=== PATIENT | female | born 1970 | race Caucasian/White ===

== ENCOUNTER 2016-10-07 18:01 | Emergency (ER) | payer BC ==
--- NOTE | 2016-10-07 18:24 | ERPHSYRPT ---
- History of Present Illness Source: patient Exam Limitations: no limitations Cough Quality/Degree: productive cough (greenish chunks of thick sputum.) Possible Cause: occasional episodes Modifying Factors: Improves With: nothing Associated Symptoms: chest pain/soreness, cough, muscle aches, sinus infection, sore throat International travel in last 2 weeks: No Hx Tetanus, Diphtheria Vaccination/Date Given: Yes (UNKNOWN) Hx Influenza Vaccination/Date Given: No Hx Pneumococcal Vaccination/Date Given: No <JESUSITA JAMES - Last Filed: 10/07/16 19:02> <MIRELLA LOYD - Last Filed: 10/07/16 21:21> - History of Present Illness Time Seen by Provider: 10/07/16 18:15 Physician History: Pt. C/O cough with burning feeling in chest when she coughs. She also C/O aching all over, even her feet. She also states that she had URTI 2 weeks ago, for which she took round of amoxicillin with improvement. She is followed by Dr. Rivera for thyroid issues and relates the breakout perioral to that. (JESUSITA JAMES) Allergies/Adverse Reactions: Iodinated Contrast Media - Oral and [Iodinated Contrast Media - IV Dye] Adverse Reaction (Intermediate, Verified 10/07/16 18:23) Itching Home Medications: Folic Acid/Multivit-Min/Lutein [Multi-Vitamin Gummies] 1 each PO DAILY 10/07/16 [History] Levothyroxine Sodium 0 mcg PO DAILY 10/07/16 [History] - Review of Systems Eyes: No Symptoms Ears, Nose, & Throat: Throat Pain Respiratory: Cough Cardiac: Chest Pain Abdominal/Gastrointestinal: Vomiting Musculoskeletal: Arthralgias Skin: No Symptoms Neurological: No Symptoms Psychological: No Symptoms Hematologic/Lymphatic: No Symptoms Immunological/Allergic: No Symptoms <JESUSITA JAMES - Last Filed: 10/07/16 19:02> - Past Medical History Pertinent Past Medical History: Yes Neurological History: No Pertinent History ENT History: No Pertinent History Cardiac History: No Pertinent History Respiratory History: No Pertinent History Endocrine Medical History: No Pertinent History Musculoskeletal History: No Pertinent History GI Medical History: No Pertinent History History: No Pertinent History Psycho-Social History: No Pertinent History Female Reproductive Disorders: Menstrual Problems - Past Surgical History Past Surgical History: No Neuro Surgical History: No Pertinent History Cardiac: No Pertinent History Respiratory: No Pertinent History Gastrointestinal: No Pertinent History Genitourinary: No Pertinent History Musculoskeletal: No Pertinent History Female Surgical History: Other Other Surgical History: D&C August 2013 - Social History Smoking Status: Never smoker Exposure to second hand smoke: No Drug Use: none Patient Lives Alone: No - Female History Hx Now: Yes <JESUSITA JAMES - Last Filed: 10/07/16 19:02> - Physical Exam General Appearance: mild distress Eye Exam: PERRL/EOMI, eyes nml inspection Ears, Nose, Throat Exam: normal ENT inspection, TMs normal Neck Exam: normal inspection, non-tender, supple, full range of motion Respiratory Exam: normal breath sounds, lungs clear Cardiovascular Exam: regular rate/rhythm, normal heart sounds, normal peripheral pulses Gastrointestinal/Abdomen Exam: soft, normal bowel sounds Extremity Exam: normal inspection, normal range of motion, pelvis stable Neurologic Exam: alert, oriented x 3, cooperative, normal mood/affect Skin Exam: normal color, warm, dry, rash (macular perioral with dry skin. No erythema or pustular drainage.) SpO2 Interpretation: normal SpO2: 98 Oxygen Delivery: Room Air <JESUSITA JAMES - Last Filed: 10/07/16 19:02> - Course Nursing assessment & vital signs reviewed: Yes EKG Interpreted by Me: RATE (72 bpm), Sinus Rhythm, NORMAL AXIS, NORMAL INTERVALS, NORMAL QRS, Other (EKG: Normal sinus rhythm, 72 bpm, normal axis, no acute ST or T wave changes, essentially normal EKG, compared to March 30, 2015) - Radiology Exams Chest X-ray Interpretation: Interpreted by me, Negative, No Pneumonia, No Pneumothorax <MIRELLA LOYD - Last Filed: 10/07/16 21:21> Ordered Tests: Active Orders 24 hr Category Date Time Status EKG-ER Only STAT Care 10/07/16 20:38 Active CHEST 1 VIEW (PORTABLE) Stat Exams 10/07/16 18:28 Taken CBC W DIFF Stat Lab 10/07/16 19:10 Completed CMP Stat Lab 10/07/16 19:10 Completed HCG,QUALITATIVE URINE Stat Lab 10/07/16 20:25 Completed INFLUENZA A+B Stat Lab 10/07/16 18:40 Completed Manual Differential NC Stat Lab 10/07/16 19:10 Completed TSH [TSH, 3RD Generation] Stat Lab 10/07/16 20:30 Completed UA W/RFX UR CULTURE Stat Lab 10/07/16 20:25 Completed Medication Summary Generic Name Dose Route Start Last Admin Trade Name Vitor PRN Reason Stop Dose Admin Sodium Chloride 1,000 mls @ 999 mls/hr 10/07/16 21:16 Sodium Chloride 0.9% 1000 Ml IV 10/07/16 22:16 .Q1H1M STA Lab/Rad Data: Laboratory Result Diagrams 10/07/16 19:10 10/07/16 19:10 Laboratory Results 10/07/16 10/07/16 10/07/16 Range/Units 20:30 20:25 20:25 WBC (4.0-10.5) K/mm3 RBC (4.1-5.4) M/mm3 Hgb (12.0-16.0) gm/dl Hct (35-47) % MCV (78-100) fl MCH (26-32) pg MCHC (32-36) g/dl RDW (11.5-14.0) % Plt Count (150-450) K/mm3 MPV (6-9.5) fl Sodium (136-145) mEq/L Potassium (3.5-5.1) mEq/L Chloride (98-107) mEq/L Carbon Dioxide (21-32) mEq/L Anion Gap (5-15) MEQ/L BUN (9-20) mg/dL Creatinine (0.55-1.30) mg/dl Estimated GFR ML/MIN Glucose (70-110) MG/DL Calcium (8.5-10.1) mg/dL Total Bilirubin (0.2-1.0) mg/dL AST (15-37) U/L ALT (12-78) U/L Alkaline Phosphatase (46-116) U/L Serum Total Protein (6.4-8.2) gm/dL Albumin (3.4-5.0) g/dL TSH 3rd Generation 1.120 (0.358-3.740) mIU/L Ur Collection Type CLEAN CATCH Urine Color YELLOW (YELLOW) Urine Appearance CLEAR (CLEAR) Urine pH 5.5 (5-6) Ur Specific [place] >=1.030 (1.005-1.025) Urine Protein NEGATIVE (Negative) Urine Glucose (UA) NEGATIVE (NEGATIVE) mg/dL Urine Ketones MODERATE-40 (NEGATIVE) Urine Nitrite NEGATIVE (NEGATIVE) Urine Bilirubin SMALL (NEGATIVE) Urine Urobilinogen 0.2 (0-1) mg/dL Urine WBC (Auto) NEGATIVE (NEGATIVE) Urine RBC (Auto) NEGATIVE (0-5) Jignesh/ul Urine HCG, Qual NEGATIVE (Negative) Influenza Type A Ag (NEGATIVE) Influenza Type B Ag (NEGATIVE) Specimen Received 10/07/16192410/07/16 10/07/16 10/07/16 Range/Units 19:10 19:10 18:40 WBC 5.1 (4.0-10.5) K/mm3 RBC 4.45 (4.1-5.4) M/mm3 Hgb 13.6 (12.0-16.0) gm/dl Hct 41.6 (35-47) % MCV 93.5 (78-100) fl MCH 30.6 (26-32) pg MCHC 32.7 (32-36) g/dl RDW 13.2 (11.5-14.0) % Plt Count 125 L (150-450) K/mm3 MPV 9.7 H (6-9.5) fl Sodium 139 (136-145) mEq/L Potassium 3.6 (3.5-5.1) mEq/L Chloride 106 (98-107) mEq/L Carbon Dioxide 25.0 (21-32) mEq/L Anion Gap 11.4 (5-15) MEQ/L BUN 13 (9-20) mg/dL Creatinine 0.61 (0.55-1.30) mg/dl Estimated GFR > 60 ML/MIN Glucose 84 (70-110) MG/DL Calcium 8.2 L (8.5-10.1) mg/dL Total Bilirubin 1.4 H (0.2-1.0) mg/dL AST 24 (15-37) U/L ALT 28 (12-78) U/L Alkaline Phosphatase 55 (46-116) U/L Serum Total Protein 7.2 (6.4-8.2) gm/dL Albumin 3.8 (3.4-5.0) g/dL TSH 3rd Generation (0.358-3.740) mIU/L Ur Collection Type Urine Color (YELLOW) Urine Appearance (CLEAR) Urine pH (5-6) Ur Specific [place] (1.005-1.025) Urine Protein (Negative) Urine Glucose (UA) (NEGATIVE) mg/dL Urine Ketones (NEGATIVE) Urine Nitrite (NEGATIVE) Urine Bilirubin (NEGATIVE) Urine Urobilinogen (0-1) mg/dL Urine WBC (Auto) (NEGATIVE) Urine RBC (Auto) (0-5) Jignesh/ul Urine HCG, Qual (Negative) Influenza Type A Ag NEGATIVE (NEGATIVE) Influenza Type B Ag NEGATIVE (NEGATIVE) Specimen Received <JESUSITA JAEMS - Last Filed: 10/07/16 19:02> - Progress Progress: improved Air Movement: fair <MIRELLA LOYD - Last Filed: 10/07/16 21:21> - Progress Progress Note: 10/07/16 20:39 This is a 45-year-old white female initially seen by Dr. James with complaint of vomiting diarrhea since today cough and cold with pain with the coughing and deep breathing for the past few days patient apparently has been undergoing a workup with Dr. Rivera for her thyroid she states she's been having burning on the bottoms of her feet. Patient has no fevers she states she aches all over she has had a recent upper respiratory infection. Past medical history essentially negative however she has been having a workup for her thyroid with her family doctor. Past surgical history includes a D&C. 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 Head is atraumatic normocephalic. Eyes PERRLA EOMI fundi are unremarkable. Ears TMs are intact bilaterally. Heart regular rate and rhythm without murmur. Abdomen soft nontender nondistended positive bowel sounds. Extremities full range of motion pulse symmetrical 2 over 4. Neuro cranial nerves II through XII are intact DTRs symmetrical 2 over 4 [place] Coma Scale 15 sensation intact to all extremities speech is normal. Patient's CBC is normal chemistry is normal influenza is negative urine and urine tests are pending. Will review patient's chest x-ray. Will go ahead and order an EKG patient has pain with breathing and coughing in her chest upper chest. 10/07/16 21:17 Patient's labs including CBC CMP and TSH are normal. Patient does have a 40 ketones in her urine glucose is 84. Will give patient a liter of normal saline EKG is a no acute changes. . Chest x-ray no acute changes no infiltrates. Will plan to hydrate the patient with 1 L of normal saline. Patient with multiple complaints which have been going on for several months. Will recommend patient follow-up with her family doctor Diagnosis mild dehydration. , Vomiting, . (MIRELLA LOYD) <JESUSITA JAMES HERNANDEZ - Last Filed: 10/07/16 19:02> - Departure Time of Disposition: 21:18 Departure Disposition: Home Critical Care Time: No <MIRELLA LOYD - Last Filed: 10/07/16 21:21> - Departure Clinical Impression: Dehydration Vomiting Qualifiers: Vomiting type: unspecified Vomiting Intractability: non-intractable Nausea presence: with nausea Qualified Code(s): R11.2 - Nausea with vomiting, unspecified Condition: Fair Referrals: KAMAR RIVERA [Primary Care Provider] - Additional Instructions: Return home. Plenty of fluids clear fluids only 24-48 hours if nausea vomiting. Zofran 4 mg orally every 4-6 hours as needed for nausea vomiting. Follow-up with Dr. Rivera. Return for acute distress or for severe symptoms. Prescriptions: Ondansetron [Zofran Odt] 4 mg PO Q4-6HPRN PRN #10 tab.rapdis PRN Reason: nausea and vomiting
[2016-10-07 19:18] LABS: Mean Cell Volume 93.5 fl (78-100); Mean Corpuscular Hemoglobin 30.6 pg (26-32); Mean Platelet Volume 9.7 fl (6-9.5); Platelet Count 125 K/mm3 (150-450); Red Blood Count 4.45 M/mm3 (4.1-5.4); Red Cell Distribution Width 13.2 % (11.5-14.0); White Blood Count 5.1 K/mm3 (4.0-10.5)
[2016-10-07 19:48] LABS: ALBUMIN 3.8 g/dL (3.4-5.0); ALKALINE PHOSPHATASE 55 U/L (46-116); ANION GAP 11.4 MEQ/L (5-15); BILIRUBIN,TOTAL 1.4 mg/dL (0.2-1.0); BLOOD UREA NITROGEN 13 mg/dL (9-20); CHLORIDE 106 mEq/L (98-107); Glucose 84 MG/DL (70-110); Potassium 3.6 mEq/L (3.5-5.1); SGOT/AST 24 U/L (15-37); SGPT/ALT 28 U/L (12-78); SODIUM 139 mEq/L (136-145); Total Protein 7.2 gm/dL (6.4-8.2)
[2016-10-07 20:43] LABS: Collection Type CLEAN CATCH; Ph 5.5 (5-6)
[2016-10-07 20:44] LABS: ADD URINE CULTURE? NO (NO); COMPLETE URINE MICROSCOPIC? NO
[2016-10-07] MEDS ORDERED: Sodium Chloride 0.9% 1000 ML 1,000 ML IV STA (21:16)
[2016-10-07] MEDS ORDERED: Sodium Chloride 0.9% 1000 ML 1,000 ML ONE (21:22)
[2016-10-07 22:21] LABS: Eosinophil 1 % (0.00-3.0); Platelet Estimate NORMAL (NORMAL); Total Cells Counted 100
[2016-10-07 22:29] VITALS: BP 107/56; PULSE 88; O2SAT 97
--- NOTE | 2016-10-08 08:42 | XRAY ---
Indication: Cough, nausea, and vomiting. Comparison: September 21, 2016 Portable chest remains unchanged again hyperinflated and clear with a few calcified granulomas. Heart is not enlarged. No new/acute findings.
== END 2016-10-07 22:28 | disposition home or self-care (01) ==
LOC: ED 18:01
DX: R11.2 Nausea with vomiting, unspecified (principal); E86.0 Dehydration; Z79.899 Other long term (current) drug therapy
CPT/HCPCS: 36000; 36415; 71010; 80053; 81000; 84443; 84703; 85025; 87400; 93005; 99283

== ENCOUNTER 2018-09-06 20:05 | Emergency (ER) | payer BC ==
--- NOTE | 2018-09-06 20:52 | ERPHSYRPT ---
- History of Present Illness Time Seen by Provider: 09/06/18 20:35 Source: patient Exam Limitations: clinical condition Patient Subjective Stated Complaint: pt states she has overall pain that rates 7. c/o abdominal pain off and on that rates 5 sharp and sporadic. c/o burning in lungs. pt states she has thyroid troubles and has been feeling badly for 2 weeks and off and on before that. Triage Nursing Assessment: bs q4 quads. pt states she has generalized pain in all for abdominal quadrants. pt states she has not been able to get thyroid levels checked lately. bilateral lower abdominal tenderness. no problems with eating, stooling, or voiding Physician History: PATIENT COMPLAINS OF GENERALIZED PAIN FOR 2 WEEKS, BURNING DISCOMFORT IN HER CHEST X 5 DAYS, DENIES DYSPNEA, PAIN UPON INSPIRATION, COUGH, FEVER, PALPITATIONS OR DIAPHORESIS. ALSO COMPLAINS OF ABDOMINAL PAIN X 2 WEEKS. DENIES EMESIS, DIARRHEA OR URINARY SYMPTOMS Timing/Duration: week(s) Severity: moderate Modifying Factors: Improves With: movement (generalized aches) Allergies/Adverse Reactions: Iodinated Contrast- Oral and IV Dye [Iodinated Contrast Media - IV Dye] Adverse Reaction (Intermediate, Verified 10/07/16 18:23) Itching Home Medications: Folic Acid/Multivit-Min/Lutein [Multi-Vitamin Gummies] 1 each PO DAILY 10/07/16 [History] Levothyroxine Sodium 0 mcg PO DAILY 10/07/16 [History] Hx Tetanus, Diphtheria Vaccination/Date Given: No Hx Influenza Vaccination/Date Given: No Hx Pneumococcal Vaccination/Date Given: No Immunizations Up to Date: Yes - Review of Systems Constitutional: No Fever, No Chills Eyes: No Symptoms Ears, Nose, & Throat: No Symptoms Respiratory: No Symptoms, No Cough, No Dyspnea Cardiac: Chest Pain, No Edema, No Syncope Abdominal/Gastrointestinal: No Abdominal Pain, No Nausea, No Vomiting, No Diarrhea Genitourinary Symptoms: No Symptoms, No Dysuria Musculoskeletal: No Symptoms, No Back Pain, No Neck Pain Skin: No Symptoms, No Rash Neurological: No Dizziness, No Focal Weakness, No Sensory Changes Psychological: No Symptoms Endocrine: No Symptoms All Other Systems: Reviewed and Negative - Past Medical History Pertinent Past Medical History: Yes Neurological History: No Pertinent History ENT History: No Pertinent History Cardiac History: No Pertinent History Respiratory History: No Pertinent History Endocrine Medical History: No Pertinent History Musculoskeletal History: No Pertinent History GI Medical History: No Pertinent History History: No Pertinent History Psycho-Social History: No Pertinent History Female Reproductive Disorders: Menstrual Problems Other Medical History: thyroid problems - Past Surgical History Past Surgical History: No Neuro Surgical History: No Pertinent History Cardiac: No Pertinent History Respiratory: No Pertinent History Gastrointestinal: No Pertinent History Genitourinary: No Pertinent History Musculoskeletal: No Pertinent History Female Surgical History: Other Other Surgical History: D&C August 2013 - Social History Smoking Status: Never smoker Exposure to second hand smoke: No Drug Use: none Patient Lives Alone: No - Female History Hx Last Menstrual Period: 6 wks Hx Now: No - Nursing Vital Signs Nursing Vital Signs: Initial Vital Signs Temperature 98.1 F 09/06/18 20:15 Pulse Rate 80 09/06/18 20:15 Respiratory Rate 18 09/06/18 20:15 Blood Pressure 129/68 09/06/18 20:15 O2 Sat by Pulse Oximetry 97 09/06/18 20:15 Pain Scale Pain Intensity [Lower Abdomen] 7 Pain Intensity 5 - Physical Exam General Appearance: no apparent distress, alert Eye Exam: PERRL/EOMI, eyes nml inspection Ears, Nose, Throat Exam: normal ENT inspection, TMs normal, pharynx normal, moist mucous membranes Neck Exam: normal inspection, non-tender, supple, full range of motion Respiratory Exam: normal breath sounds, lungs clear, other (PARASTERNAL TENDERNESS), No respiratory distress Cardiovascular Exam: regular rate/rhythm, normal heart sounds, normal peripheral pulses Gastrointestinal/Abdomen Exam: soft, normal bowel sounds, No tenderness, No mass Back Exam: normal inspection, normal range of motion, No CVA tenderness, No vertebral tenderness Extremity Exam: normal inspection, normal range of motion, pelvis stable Neurologic Exam: alert, oriented x 3, cooperative, normal mood/affect, nml cerebellar function, nml station & gait, sensation nml, No motor deficits Skin Exam: normal color, warm, dry, No rash Lymphatic Exam: No adenopathy SpO2 Interpretation: normal SpO2: 97 Oxygen Delivery: Room Air - Course EKG Interpreted by Me: RATE, Sinus Rhythm, NORMAL AXIS - Radiology Exams Abdomen X-ray Interpretation: Interpreted by me, Negative (FECAL RETENTION, NO FREE AIR , NO BOWEL OBSTRUCTION, NEGATIVE CHEST) Ordered Tests: Active Orders 24 hr Category Date Time Status Clean Catch Urine Specimen STAT Care 09/06/18 20:37 Active EKG-ER Only STAT Care 09/06/18 20:37 Active IV Insertion STAT Care 09/06/18 20:37 Active OBSTR/ACUTE ABDOMEN SERIES Stat Exams 09/06/18 21:19 Taken AMYLASE Stat Lab 09/06/18 20:56 Completed CBC W DIFF Stat Lab 09/06/18 20:56 Completed CMP Stat Lab 09/06/18 20:56 Completed CULTURE,URINE Stat Lab 09/06/18 21:25 Received D-DIMER QUANTITATION Stat Lab 09/06/18 20:56 Completed HCG,QUALITATIVE URINE Stat Lab 09/06/18 21:25 Completed LIPASE Stat Lab 09/06/18 20:56 Completed MAGNESIUM Stat Lab 09/06/18 21:21 Completed TROPONIN Q3H Lab 09/06/18 20:56 Completed TROPONIN Q3H Lab 09/07/18 00:00 Ordered TROPONIN Q3H Lab 09/07/18 03:00 Ordered TROPONIN Q3H Lab 09/07/18 06:00 Ordered TROPONIN Q3H Lab 09/07/18 09:00 Ordered TSH, 3RD Generation Stat Lab 09/06/18 20:56 Completed UA W/RFX UR CULTURE Stat Lab 09/06/18 21:25 Completed Medication Summary Generic Name Dose Route Start Last Admin Trade Name Freq PRN Reason Stop Dose Admin Sodium Chloride 1,000 mls @ 200 mls/hr 09/06/18 21:00 09/06/18 21:12 Sodium Chloride 0.9% 1000 Ml IV 10/06/18 20:59 200 mls/hr .Q5H SATNAM Administration Discontinued Medications Generic Name Dose Route Start Last Admin Trade Name Freq PRN Reason Stop Dose Admin Aspirin 324 mg 09/06/18 20:54 09/06/18 21:19 Baby Aspirin 81 Mg Chew PO 09/06/18 20:55 324 mg STAT ONE Administration Aspirin Confirm 09/06/18 21:18 Baby Aspirin 81 Mg Chew Administered 09/06/18 21:19 Dose 324 mg .ROUTE .STK-MED ONE Erythromycin 3.5 gm 09/06/18 21:19 09/06/18 21:34 Erythromycin 3.5 Gm Ophth. OP 09/06/18 21:20 3.5 gm STAT ONE Administration Erythromycin Confirm 09/06/18 21:29 Erythromycin 1 Gm Administered 09/06/18 21:30 Dose 1 gm .ROUTE .STK-MED ONE Eye Irrigation Solution Confirm 09/06/18 20:56 Eye-Stream Solution Administered 09/06/18 20:57 Dose 30 ml .ROUTE .STK-MED ONE Fluorescein Sodium Confirm 09/06/18 20:56 [id number]/Ful-Per Administered 09/06/18 20:57 Dose 1 mg OP .STK-MED ONE Ceftriaxone Sodium/Dextrose 1 g in 50 mls @ 100 mls/hr 09/06/18 22:34 22:40 Rocephin 1 Gm-D5w 50 Ml Bag IV 09/06/18 23:03 100 ml/hr STAT STA 100 mls/hr Administration Ceftriaxone Sodium/Dextrose Confirm 09/06/18 22:37 Rocephin 1 Gm-D5w 50 Ml Bag Administered 09/06/18 22:38 Dose 1 g in 50 mls @ ud IV .STK-MED ONE Ketorolac Tromethamine 30 mg 09/06/18 21:27 09/06/18 21:33 Toradol 30 Mg Injection IV 09/06/18 21:28 30 mg STAT ONE Administration Ketorolac Tromethamine Confirm 09/06/18 21:29 Toradol 30 Mg Injection Administered 09/06/18 21:30 Dose 30 mg .ROUTE .STK-MED ONE Nitroglycerin 0.4 mg 09/06/18 20:54 09/06/18 21:20 Nitrostat 0.4 Mg (Ed) SL 09/06/18 20:55 0.4 mg STAT ONE Administration Nitroglycerin Confirm 09/06/18 21:18 Nitrostat 0.4 Mg (Ed) Administered 09/06/18 21:19 Dose 0.4 mg SL .STK-MED ONE Ondansetron HCl 4 mg 09/06/18 21:27 09/06/18 21:33 Zofran 4 Mg/2 Ml Vial IV 09/06/18 21:28 4 mg STAT ONE Administration Ondansetron HCl Confirm 09/06/18 21:29 Zofran 4 Mg/2 Ml Vial Administered 09/06/18 21:30 Dose 4 mg .ROUTE .STK-MED ONE Tetracaine HCl Confirm 09/06/18 20:56 Tetracaine 0.5% Steri-Unit Nubia Administered 09/06/18 20:57 Dose 4 ml OP .STK-MED ONE Lab/Rad Data: Laboratory Result Diagrams 09/06/18 20:56 09/06/18 20:56 Laboratory Results 09/06/18 09/06/18 09/06/18 Range/Units 21:25 21:25 21:21 WBC (4.0-10.5) K/mm3 RBC (4.1-5.4) M/mm3 Hgb (12.0-16.0) gm/dl Hct (35-47) % MCV (78-100) fl MCH (26-32) pg MCHC (32-36) g/dl RDW (11.5-14.0) % Plt Count (150-450) K/mm3 MPV (6-9.5) fl Gran % (36.0-66.0) % Eos # (Auto) (0-0.5) Absolute Lymphs (auto) (1.0-4.6) Absolute Monos (auto) (0.0-1.3) Lymphocytes % (24.0-44.0) % Monocytes % (0.0-12.0) % Eosinophils % (0.00-5.0) % Basophils % (0.0-0.4) % Absolute Granulocytes (1.4-6.9) Basophils # (0-0.4) D-Dimer (215-500) ng/mL Sodium (137-145) mmol/L Potassium (3.5-5.1) mmol/L Chloride (98-107) mmol/L Carbon Dioxide (22-30) mmol/L Anion Gap (5-15) MEQ/L BUN (7-17) mg/dL Creatinine (0.52-1.04) mg/dL Estimated GFR ML/MIN Glucose (74-106) mg/dL Calcium (8.4-10.2) mg/dL Magnesium 1.9 (1.6-2.3) mg/dL Total Bilirubin (0.2-1.3) mg/dL AST (14-36) U/L ALT (0-35) U/L Alkaline Phosphatase (38-126) U/L Troponin I (0.000-0.034) ng/mL Serum Total Protein (6.3-8.2) g/dL Albumin (3.5-5.0) g/dL Amylase (30-110) U/L Lipase (23-300) U/L TSH 3rd Generation (0.47-4.68) mIU/L Urine Color YELLOW (YELLOW) Urine Appearance CLOUDY (CLEAR) Urine pH 5.0 (5-6) Ur Specific Ilion 1.024 (1.005-1.025) Urine Protein NEGATIVE (Negative) Urine Ketones NEGATIVE (NEGATIVE) Urine Blood LARGE (0-5) Jignesh/ul Urine Nitrite NEGATIVE (NEGATIVE) Urine Bilirubin NEGATIVE (NEGATIVE) Urine Urobilinogen 2 (0-1) mg/dL Ur Leukocyte Esterase LARGE (NEGATIVE) Urine WBC (Auto) 51-100 (0-5) /HPF Urine RBC (Auto) 11-15 (0-2) /HPF U Epithel Cells (Auto) FEW (FEW) /HPF Urine Bacteria (Auto) MODERATE (NEGATIVE) /HPF Urine Mucus (Auto) SLIGHT (NEGATIVE) /HPF Urine Culture Reflexed YES (NO) Urine Glucose NEGATIVE (NEGATIVE) mg/dL Urine HCG, Qual NEGATIVE (Negative) 09/06/18 09/06/18 09/06/18 Range/Units 20:56 20:56 20:56 WBC (4.0-10.5) K/mm3 RBC (4.1-5.4) M/mm3 Hgb (12.0-16.0) gm/dl Hct (35-47) % MCV (78-100) fl MCH (26-32) pg MCHC (32-36) g/dl RDW (11.5-14.0) % Plt Count (150-450) K/mm3 MPV (6-9.5) fl Gran % (36.0-66.0) % Eos # (Auto) (0-0.5) Absolute Lymphs (auto) (1.0-4.6) Absolute Monos (auto) (0.0-1.3) Lymphocytes % (24.0-44.0) % Monocytes % (0.0-12.0) % Eosinophils % (0.00-5.0) % Basophils % (0.0-0.4) % Absolute Granulocytes (1.4-6.9) Basophils # (0-0.4) D-Dimer 497 (215-500) ng/mL Sodium 139 (137-145) mmol/L Potassium 3.8 (3.5-5.1) mmol/L Chloride 105 (98-107) mmol/L Carbon Dioxide 26 (22-30) mmol/L Anion Gap 11.7 (5-15) MEQ/L BUN 17 (7-17) mg/dL Creatinine 0.64 (0.52-1.04) mg/dL Estimated GFR > 60.0 ML/MIN Glucose 83 (74-106) mg/dL Calcium 9.2 (8.4-10.2) mg/dL Magnesium (1.6-2.3) mg/dL Total Bilirubin 0.70 (0.2-1.3) mg/dL AST 27 (14-36) U/L ALT 24 (0-35) U/L Alkaline Phosphatase 51 (38-126) U/L Troponin I < 0.012 (0.000-0.034) ng/mL Serum Total Protein 7.2 (6.3-8.2) g/dL Albumin 4.3 (3.5-5.0) g/dL Amylase 65 (30-110) U/L Lipase 75 (23-300) U/L TSH 3rd Generation 1.670 (0.47-4.68) mIU/L Urine Color (YELLOW) Urine Appearance (CLEAR) Urine pH (5-6) Ur Specific Ilion (1.005-1.025) Urine Protein (Negative) Urine Ketones (NEGATIVE) Urine Blood (0-5) Jignesh/ul Urine Nitrite (NEGATIVE) Urine Bilirubin (NEGATIVE) Urine Urobilinogen (0-1) mg/dL Ur Leukocyte Esterase (NEGATIVE) Urine WBC (Auto) (0-5) /HPF Urine RBC (Auto) (0-2) /HPF U Epithel Cells (Auto) (FEW) /HPF Urine Bacteria (Auto) (NEGATIVE) /HPF Urine Mucus (Auto) (NEGATIVE) /HPF Urine Culture Reflexed (NO) Urine Glucose (NEGATIVE) mg/dL Urine HCG, Qual (Negative) 09/06/18 Range/Units 20:56 WBC 5.4 (4.0-10.5) K/mm3 RBC 3.79 L (4.1-5.4) M/mm3 Hgb 13.0 (12.0-16.0) gm/dl Hct 37.5 (35-47) % MCV 98.9 (78-100) fl MCH 34.3 H (26-32) pg MCHC 34.7 (32-36) g/dl RDW 13.2 (11.5-14.0) % Plt Count 175 (150-450) K/mm3 MPV 9.9 H (6-9.5) fl Gran % 62.3 (36.0-66.0) % Eos # (Auto) 0.12 (0-0.5) Absolute Lymphs (auto) 1.31 (1.0-4.6) Absolute Monos (auto) 0.59 (0.0-1.3) Lymphocytes % 24.2 (24.0-44.0) % Monocytes % 10.9 (0.0-12.0) % Eosinophils % 2.2 (0.00-5.0) % Basophils % 0.4 (0.0-0.4) % Absolute Granulocytes 3.38 (1.4-6.9) Basophils # 0.02 (0-0.4) D-Dimer (215-500) ng/mL Sodium (137-145) mmol/L Potassium (3.5-5.1) mmol/L Chloride (98-107) mmol/L Carbon Dioxide (22-30) mmol/L Anion Gap (5-15) MEQ/L BUN (7-17) mg/dL Creatinine (0.52-1.04) mg/dL Estimated GFR ML/MIN Glucose (74-106) mg/dL Calcium (8.4-10.2) mg/dL Magnesium (1.6-2.3) mg/dL Total Bilirubin (0.2-1.3) mg/dL AST (14-36) U/L ALT (0-35) U/L Alkaline Phosphatase (38-126) U/L Troponin I (0.000-0.034) ng/mL Serum Total Protein (6.3-8.2) g/dL Albumin (3.5-5.0) g/dL Amylase (30-110) U/L Lipase (23-300) U/L TSH 3rd Generation (0.47-4.68) mIU/L Urine Color (YELLOW) Urine Appearance (CLEAR) Urine pH (5-6) Ur Specific [place] (1.005-1.025) Urine Protein (Negative) Urine Ketones (NEGATIVE) Urine Blood (0-5) Jignesh/ul Urine Nitrite (NEGATIVE) Urine Bilirubin (NEGATIVE) Urine Urobilinogen (0-1) mg/dL Ur Leukocyte Esterase (NEGATIVE) Urine WBC (Auto) (0-5) /HPF Urine RBC (Auto) (0-2) /HPF U Epithel Cells (Auto) (FEW) /HPF Urine Bacteria (Auto) (NEGATIVE) /HPF Urine Mucus (Auto) (NEGATIVE) /HPF Urine Culture Reflexed (NO) Urine Glucose (NEGATIVE) mg/dL Urine HCG, Qual (Negative) - Progress Progress: improved Progress Note: 09/06/18 23:30 IV ROCEPHIN 1GM IVPB, ALL LABS REVIEWED AND ARE NORMAL EXCEPT FOR U/A WBC 51-100 Counseled pt/family regarding: lab results, diagnosis, need for follow-up, rad results - Departure Time of Disposition: 23:38 Departure Disposition: Home Clinical Impression: URINARY TRACT INFECTION Condition: Stable Critical Care Time: No Referrals: KAMAR BURROUGHS [Primary Care Provider] - Additional Instructions: BEGIN ANTIBIOTIC BACTRIM DS TWICE DAILY FOR 10 DAYS. DRINK PLENTY OF FLUIDS. FOLLOWUP WITH YOUR PRIMARY CARE PROVIDER FOR EVALUATION AND TREATMENT. Prescriptions: Smz/Tmp Ds Tablet [Bactrim Ds Tablet] 1 tab PO Q12H #20 tablet
[2018-09-06] MEDS ORDERED: Nitrostat 0.4 MG (ED) SL ONE ×2 (20:54→21:18)
[2018-09-06] MEDS ORDERED: BABY ASPIRIN 81 MG CHEW PO ONE (20:54)
[2018-09-06] MEDS ORDERED: Fluor-I-Strip/Ful-Flo OP ONE (20:56)
[2018-09-06] MEDS ORDERED: TETRACAINE 0.5% STERI-UNIT SOL OP ONE (20:56)
[2018-09-06] MEDS ORDERED: Eye-Stream Solution ONE (20:56)
[2018-09-06] MEDS ORDERED: Sodium Chloride 0.9% 1000 ML 1,000 ML ONE (20:57)
[2018-09-06] MEDS ORDERED: Sodium Chloride 0.9% 1000 ML 1,000 ML IV SCH (21:00)
[2018-09-06 21:02] LABS: BASOPHIL % 0.4 % (0.0-0.4); Basophil (Absolute #) 0.02 (0-0.4); Eosinophil % 2.2 % (0.00-5.0); Eosinophil (Absolute #) 0.12 (0-0.5); Granulocyte Absolute (ANC) 3.38 (1.4-6.9); Granulocytes % 62.3 % (36.0-66.0); Hematocrit 37.5 % (35-47); Lymphocyte (Absolute #) 1.31 (1.0-4.6); Lymphocytes % 24.2 % (24.0-44.0); Mean Cell Volume 98.9 fl (78-100); Mean Corpuscular Hemoglobin 34.3 pg (26-32); Mean Corpuscular Hgb Concent. 34.7 g/dl (32-36); Mean Platelet Volume 9.9 fl (6-9.5); Monocyte (Absolute #) 0.59 (0.0-1.3); Monocytes % 10.9 % (0.0-12.0); Platelet Count 175 K/mm3 (150-450); Red Blood Count 3.79 M/mm3 (4.1-5.4); Red Cell Distribution Width 13.2 % (11.5-14.0); White Blood Count 5.4 K/mm3 (4.0-10.5)
[2018-09-06] MEDS ORDERED: BABY ASPIRIN 81 MG CHEW ONE (21:18)
[2018-09-06] MEDS ORDERED: Erythromycin 3.5 GM OPHTH. OP ONE (21:19)
[2018-09-06 21:24] VITALS: BP 108/70; PULSE 76
[2018-09-06] MEDS ORDERED: TORAdol 30 mg Injection IV ONE (21:27)
[2018-09-06] MEDS ORDERED: Zofran 4 MG/2 ML VIAL IV ONE (21:27)
[2018-09-06] MEDS ORDERED: Zofran 4 MG/2 ML VIAL ONE (21:29)
[2018-09-06] MEDS ORDERED: TORAdol 30 mg Injection ONE (21:29)
[2018-09-06] MEDS ORDERED: Erythromycin 1 GM ONE (21:29)
[2018-09-06 21:34] LABS: Appearance CLOUDY (CLEAR); Bilirubin NEGATIVE (NEGATIVE); Blood LARGE Ery/ul (0-5); Glucose NEGATIVE (NEGATIVE); Ketones NEGATIVE (NEGATIVE); Leukocyte Esterase LARGE (NEGATIVE); Nitrite NEGATIVE (NEGATIVE); Protein,Urine Dip NEGATIVE (Negative); Specific Gravity 1.024 (1.005-1.025); Urobilinogen 2 mg/dL (0-1)
[2018-09-06 21:44] LABS: ALBUMIN 4.3 g/dL (3.5-5.0); ALKALINE PHOSPHATASE 51 U/L (38-126); AMYLASE 65 U/L (30-110); ANION GAP 11.7 MEQ/L (5-15); BLOOD UREA NITROGEN 17 mg/dL (7-17); CHLORIDE 105 mmol/L (98-107); Calcium 9.2 mg/dL (8.4-10.2); Carbon Dioxide 26 mmol/L (22-30); Creatinine 1 0.64 mg/dL (0.52-1.04); Glucose 83 mg/dL (74-106); LIPASE 75 U/L (23-300); Potassium 3.8 mmol/L (3.5-5.1); SGOT/AST 27 U/L (14-36); SGPT/ALT 24 U/L (0-35); SODIUM 139 mmol/L (137-145); Total Protein 7.2 g/dL (6.3-8.2)
[2018-09-06] MEDS ORDERED: ROCEPHIN 1 Gm-D5w 50 ml Bag** 1 G/50 ML IVPB IV STA (22:34)
[2018-09-06] MEDS ORDERED: ROCEPHIN 1 Gm-D5w 50 ml Bag** 1 G/50 ML IVPB IV ONE (22:37)
[2018-09-06 23:27] VITALS: O2SAT 97
--- NOTE | 2018-09-07 10:49 | XRAY ---
Indication: Chest burning sensation. Abdomen tenderness. Comparison: Portable chest October 07, 2016. 2 views of the abdomen demonstrates moderate diffuse scattered colonic fecal debris. No focal bowel dilatation/obstruction. Solid organs unremarkable. Osseous structures intact with mild levoscoliosis. Single AP chest again demonstrates normal heart and lungs. Bony thorax intact with stable mild dextroscoliosis. Impression: 1. Fecal stasis without obstruction. 2. Stable normal one view chest. 3. Incidental double curvature scoliosis.
== END 2018-09-06 23:50 | disposition home or self-care (01) ==
LOC: ED 20:05
DX: N39.0 Urinary tract infection, site not specified (principal); Z79.899 Other long term (current) drug therapy
CPT/HCPCS: 36000; 36415; 74022; 80053; 81001; 82150; 83690; 83735; 84443; 84484; 84703; 85025; 85379; 87077; 87086; 87186; 93005; 96360; 96365; 96374; 96375; 99284; J0696; J1885; J2405; A9270-GY

== ENCOUNTER 2018-09-09 17:50 | Emergency (ER) | payer BC ==
--- NOTE | 2018-09-09 17:57 | ERPHSYRPT ---
- History of Present Illness Time Seen by Provider: 09/09/18 17:57 Historian: patient, family Exam Limitations: no limitations Physician History: 47 y/o white female presents with "not feeling well for months" and persistent cp since her visit 09/06/18. i reviewed pts visit . no acute process. since pt sx of cp present, pcp office told pt to come to ED for eval. pt thinks the bactrim ds is making her feel worse. denies soa. Timing/Duration: week(s) Activities at Onset: none Quality: tightness (in her chest) Chest Pain Radiation: no radiation Severity of Pain-Max: mild Severity of Pain-Current: mild Modifying Factors: Improves With: nothing Associated Symptoms: nausea Prior Chest Pain/Cardiac Workup: recently seen/treated Nitro Today/Relief: no nitro taken today Aspirin Treatment Today: no aspirin today Allergies/Adverse Reactions: Iodinated Contrast- Oral and IV Dye [Iodinated Contrast Media - IV Dye] Adverse Reaction (Intermediate, Verified 09/06/18 23:34) Itching Home Medications: Folic Acid/Multivit-Min/Lutein [Multi-Vitamin Gummies] 1 each PO DAILY 10/07/16 [History] Levothyroxine Sodium 0 mcg PO DAILY 10/07/16 [History] Hx Tetanus, Diphtheria Vaccination/Date Given: No Hx Influenza Vaccination/Date Given: No Hx Pneumococcal Vaccination/Date Given: No - Review of Systems Constitutional: No Symptoms Eyes: No Symptoms Ears, Nose, & Throat: No Symptoms Respiratory: No Symptoms Cardiac: Chest Pain Abdominal/Gastrointestinal: No Symptoms Genitourinary Symptoms: No Symptoms Musculoskeletal: No Symptoms Skin: No Symptoms Neurological: No Symptoms Psychological: No Symptoms Endocrine: No Symptoms Hematologic/Lymphatic: No Symptoms Immunological/Allergic: No Symptoms All Other Systems: Reviewed and Negative - Past Medical History Pertinent Past Medical History: Yes Neurological History: No Pertinent History ENT History: No Pertinent History Cardiac History: No Pertinent History Respiratory History: No Pertinent History Endocrine Medical History: No Pertinent History Musculoskeletal History: No Pertinent History GI Medical History: No Pertinent History History: No Pertinent History Psycho-Social History: No Pertinent History Female Reproductive Disorders: Menstrual Problems Other Medical History: thyroid problems - Past Surgical History Past Surgical History: No Neuro Surgical History: No Pertinent History Cardiac: No Pertinent History Respiratory: No Pertinent History Gastrointestinal: No Pertinent History Genitourinary: No Pertinent History Musculoskeletal: No Pertinent History Female Surgical History: Other Other Surgical History: D&C August 2013 - Social History Smoking Status: Never smoker Exposure to second hand smoke: No Drug Use: none Patient Lives Alone: No - Nursing Vital Signs Nursing Vital Signs: Initial Vital Signs Pulse Rate 68 09/09/18 18:13 Pain Scale Pain Intensity 4 - Physical Exam General Appearance: no apparent distress, alert, anxiety Eye Exam: PERRL/EOMI Ears, Nose, Throat Exam: normal ENT inspection, moist mucous membranes Neck Exam: normal inspection, non-tender, supple, full range of motion Respiratory Exam: normal breath sounds, lungs clear, airway intact, No chest tenderness, No respiratory distress, No accessory muscle use, No rhonchi, No wheezing, No stridor Cardiovascular Exam: regular rate/rhythm, normal heart sounds, normal peripheral pulses Gastrointestinal/Abdomen Exam: soft, normal bowel sounds, No tenderness, No guarding, No rebound Pelvic Exam: not done Rectal Exam: not done Back Exam: normal inspection, normal range of motion, No CVA tenderness, No vertebral tenderness Extremity Exam: normal inspection, normal range of motion, pelvis stable Neurologic Exam: alert, oriented x 3, cooperative, warm in II-XII nml as tested Skin Exam: normal color, warm, dry Lymphatic Exam: No adenopathy SpO2 Interpretation: normal - Course Nursing assessment & vital signs reviewed: Yes EKG Interpreted by Me: RATE (76), Sinus Rhythm, NORMAL AXIS, NORMAL INTERVALS, NORMAL QRS (no change from ekg dated 09/06/18), Non-specific ST Changes Ordered Tests: Active Orders 24 hr Category Date Time Status EKG-ER Only STAT Care 09/09/18 18:04 Active D-DIMER QUANTITATION Stat Lab 09/09/18 18:25 Completed TROPONIN Q3H Lab 09/09/18 18:10 Completed TROPONIN Q3H Lab 09/09/18 21:15 Ordered Medication Summary Discontinued Medications Generic Name Dose Route Start Last Admin Trade Name Freq PRN Reason Stop Dose Admin Ceftriaxone Sodium/Dextrose 1 g in 50 mls @ 100 mls/hr 09/09/18 18:17 18:41 Rocephin 1 Gm-D5w 50 Ml Bag IV 09/09/18 18:46 100 ml/hr STAT STA 100 mls/hr Administration Ceftriaxone Sodium/Dextrose Confirm 09/09/18 18:39 Rocephin 1 Gm-D5w 50 Ml Bag Administered 09/09/18 18:40 Dose 1 g in 50 mls @ ud IV .STK-MED ONE Lab/Rad Data: Laboratory Results 09/09/18 09/09/18 Range/Units 18:25 18:10 D-Dimer 233 (215-500) ng/mL Troponin I < 0.012 (0.000-0.034) ng/mL - Progress Progress: improved Air Movement: good Antibiotics given: Yes Counseled pt/family regarding: lab results, diagnosis, need for follow-up - Departure Time of Disposition: 18:30 Departure Disposition: Home Clinical Impression: UTI (urinary tract infection), Chest pain Condition: Stable Critical Care Time: No Referrals: KAMAR GARSIA [Primary Care Provider] - Additional Instructions: drink plenty of fluids. stop bactrim ds. follow up with dr. garsia tomorrow for further management. Prescriptions: Ciprofloxacin [Cipro 500 MG] 500 mg PO BID #20 tablet
[2018-09-09] MEDS ORDERED: ROCEPHIN 1 Gm-D5w 50 ml Bag** 1 G/50 ML IVPB IV STA (18:17)
[2018-09-09 18:37] VITALS: O2SAT 100
[2018-09-09] MEDS ORDERED: ROCEPHIN 1 Gm-D5w 50 ml Bag** 1 G/50 ML IVPB IV ONE (18:39)
[2018-09-09 19:39] VITALS: BP 107/78; PULSE 91
== END 2018-09-09 19:43 ==
LOC: ED 17:50
DX: N39.0 Urinary tract infection, site not specified (principal); R07.9 Chest pain, unspecified; Z79.899 Other long term (current) drug therapy
CPT/HCPCS: 36000; 36415; 84484; 85379; 93005; 96365; 99284; J0696

== ENCOUNTER 2018-12-02 14:03 | Observation (INO) | payer BC, OTHER ==
[2018-12-02] MEDS ORDERED: Zofran 4 MG/2 ML VIAL IV ONE (14:23)
[2018-12-02] MEDS ORDERED: Sodium Chloride 0.9% 1000 ML 1,000 ML IV STA ×2 (14:23→15:55)
--- NOTE | 2018-12-02 14:29 | ERPHSYRPT ---
- History of Present Illness Time Seen by Provider: 12/02/18 14:25 Historian: patient Exam Limitations: no limitations Physician History: 48-year-old white female with history of menstrual problems and thyroid problems Patient arrives with complaint of multiple episodes of vomiting since yesterday she states she's had some tightness in her chest earlier no pain. She states her whole family has had flulike illness. She states she did not take her temperature but felt as if she was warm today. Past medical history includes menstrual problems, thyroid problems Past surgical history includes D&C Social history patient denies tobacco alcohol or illicit drug use Timing/Duration: yesterday Activities at Onset: none Quality: other (no abdominal pain chest is felt tight with breathing) Severity of Pain-Max: none Severity of Pain-Current: none Modifying Factors: Improves With: nothing Associated Symptoms: nausea, vomiting, other (chest tight with breathing), No back, No chest pain, No diaphoresis, No diarrhea, No fever/chills, No fatigue, No headache, No heartburn, No loss of appetite, No neck pain, No rash, No shortness of breath, No syncope Previous symptoms: no prior history Allergies/Adverse Reactions: Iodinated Contrast- Oral and IV Dye [Iodinated Contrast Media - IV Dye] Allergy (Mild, Verified 12/02/18 14:09) Itching sulfamethoxazole [From Bactrim] Adverse Reaction (Verified 12/02/18 14:10) abd pain trimethoprim [From Bactrim] Adverse Reaction (Verified 12/02/18 14:10) abd pain Home Medications: Levothyroxine Sodium 0 mcg PO DAILY 10/07/16 [History] Clonazepam 0.5 mg [Klonopin 0.5 MG] 0.5 mg PO DIRECTIONS UNKNOWN 12/02/18 [History] Hx Tetanus, Diphtheria Vaccination/Date Given: No Hx Influenza Vaccination/Date Given: No Hx Pneumococcal Vaccination/Date Given: No - Review of Systems Constitutional: No Fever, No Chills Eyes: No Symptoms Ears, Nose, & Throat: No Symptoms, No Hoarse Respiratory: Other (chest feels tight with breathing), No Cyanosis, No Dyspnea, No Dyspnea on Exertion (HSU), No Stridor Cardiac: No Chest Pain, No Edema, No Syncope Abdominal/Gastrointestinal: Nausea, Vomiting, No Abdominal Pain, No Diarrhea, No Constipation, No Hematemesis, No Hematochezia, No Melena, No Dysphagia, No Appetite Changes Genitourinary Symptoms: No Dysuria Musculoskeletal: No Back Pain, No Neck Pain Skin: No Rash Neurological: No Dizziness, No Focal Weakness, No Sensory Changes Psychological: No Symptoms Endocrine: No Symptoms All Other Systems: Reviewed and Negative - Past Medical History Pertinent Past Medical History: Yes Neurological History: No Pertinent History ENT History: No Pertinent History Cardiac History: No Pertinent History Respiratory History: No Pertinent History Endocrine Medical History: No Pertinent History Musculoskeletal History: No Pertinent History GI Medical History: No Pertinent History History: No Pertinent History Psycho-Social History: No Pertinent History Female Reproductive Disorders: Menstrual Problems Other Medical History: thyroid problems - Past Surgical History Past Surgical History: No Neuro Surgical History: No Pertinent History Cardiac: No Pertinent History Respiratory: No Pertinent History Gastrointestinal: No Pertinent History Genitourinary: No Pertinent History Musculoskeletal: No Pertinent History Female Surgical History: Other Other Surgical History: D&C August 2013 - Social History Smoking Status: Never smoker Exposure to second hand smoke: No Drug Use: none Patient Lives Alone: No - Nursing Vital Signs Nursing Vital Signs: Initial Vital Signs Temperature 98.2 F 12/02/18 14:19 Pulse Rate 86 12/02/18 14:19 Respiratory Rate 16 12/02/18 14:19 Blood Pressure 111/69 12/02/18 14:19 O2 Sat by Pulse Oximetry 97 12/02/18 14:19 Pain Scale Pain Intensity 0 - Physical Exam General Appearance: alert, anxiety, other (well-developed well-nourished white female anxious) Eye Exam: PERRL/EOMI, eyes nml inspection Ears, Nose, Throat Exam: normal ENT inspection, pharynx normal, moist mucous membranes Neck Exam: normal inspection, non-tender, supple, full range of motion Respiratory Exam: normal breath sounds, lungs clear, No respiratory distress Cardiovascular Exam: regular rate/rhythm, normal heart sounds, capillary refill <2 sec Gastrointestinal/Abdomen Exam: soft, No tenderness, No mass Back Exam: normal inspection, normal range of motion, No CVA tenderness, No vertebral tenderness Extremity Exam: normal inspection, normal range of motion, pelvis stable Neurologic Exam: alert, oriented x 3, cooperative, intranet support II-XII nml as tested, normal mood/affect, nml cerebellar function, sensation nml, No motor deficits Skin Exam: normal color, warm, dry SpO2 Interpretation: normal (97%) - Course Nursing assessment & vital signs reviewed: Yes EKG Interpreted by Me: RATE (85 bpm), Sinus Rhythm, NORMAL AXIS, Other (EKG: Sinus rhythm, 85 bpm, normal axis, no acute ST or T wave changes, normal EKG) Ordered Tests: Active Orders 24 hr Category Date Time Status EKG-ER Only STAT Care 12/02/18 14:22 Active IV Insertion STAT Care 12/02/18 14:22 Active AMYLASE Stat Lab 12/02/18 14:22 Completed CBC W DIFF Stat Lab 12/02/18 14:22 Completed CMP Stat Lab 12/02/18 14:22 Completed CULTURE,URINE Stat Lab 12/02/18 14:31 Received HCG QUALITATIVE,SERUM Stat Lab 12/02/18 Completed LIPASE Stat Lab 12/02/18 14:22 Completed TROPONIN Q3H Lab 12/02/18 17:30 Ordered TROPONIN Q3H Lab 12/02/18 20:30 Ordered TROPONIN Q3H Lab 12/02/18 23:30 Ordered TROPONIN Q3H Lab 12/03/18 02:30 Ordered TROPONIN Stat Lab 12/02/18 14:22 Completed UA W/RFX UR CULTURE Stat Lab 12/02/18 14:31 Completed Medication Summary Generic Name Dose Route Start Last Admin Trade Name Freq PRN Reason Stop Dose Admin Sodium Chloride 1,000 mls @ 999 mls/hr 12/02/18 15:55 12/02/18 15:57 Sodium Chloride 0.9% 1000 Ml IV 12/02/18 16:55 999 mls/hr .Q1H1M STA Administration Discontinued Medications Generic Name Dose Route Start Last Admin Trade Name Freq PRN Reason Stop Dose Admin Sodium Chloride 1,000 mls @ 999 mls/hr 12/02/18 14:23 12/02/18 15:33 Sodium Chloride 0.9% 1000 Ml IV 12/02/18 15:23 Infused .Q1H1M STA Infusion Sodium Chloride Confirm 12/02/18 14:31 Sodium Chloride 0.9% 1000 Ml Administered 12/02/18 14:32 Dose 1,000 mls @ ud .ROUTE .STK-MED ONE Sodium Chloride Confirm 12/02/18 15:57 Sodium Chloride 0.9% 1000 Ml Administered 12/02/18 15:58 Dose 1,000 mls @ ud .ROUTE .STK-MED ONE Ondansetron HCl 4 mg 12/02/18 14:23 12/02/18 14:34 Zofran 4 Mg/2 Ml Vial IV 12/02/18 14:24 4 mg STAT ONE Administration Ondansetron HCl Confirm 12/02/18 14:31 Zofran 4 Mg/2 Ml Vial Administered 12/02/18 14:32 Dose 4 mg .ROUTE .STK-MED ONE Promethazine HCl 25 mg 12/02/18 15:38 12/02/18 15:50 Phenergan 25 Mg Inj IM 12/02/18 15:39 25 mg STAT ONE Administration Promethazine HCl Confirm 12/02/18 15:47 Phenergan 25 Mg Inj Administered 12/02/18 15:48 Dose 25 mg .ROUTE .STK-MED ONE Lab/Rad Data: Laboratory Result Diagrams 12/02/18 14:22 12/02/18 14:22 Laboratory Results 12/02/18 12/02/18 12/02/18 Range/Units Unknown Unknown 14:31 WBC (4.0-10.5) K/mm3 RBC (4.1-5.4) M/mm3 Hgb (12.0-16.0) gm/dl Hct (35-47) % MCV (78-100) fl MCH (26-32) pg MCHC (32-36) g/dl RDW (11.5-14.0) % Plt Count (150-450) K/mm3 MPV (6-9.5) fl Gran % (36.0-66.0) % Eos # (Auto) (0-0.5) Absolute Lymphs (auto) (1.0-4.6) Absolute Monos (auto) (0.0-1.3) Lymphocytes % (24.0-44.0) % Monocytes % (0.0-12.0) % Eosinophils % (0.00-5.0) % Basophils % (0.0-0.4) % Absolute Granulocytes (1.4-6.9) Basophils # (0-0.4) Sodium (137-145) mmol/L Potassium (3.5-5.1) mmol/L Chloride (98-107) mmol/L Carbon Dioxide (22-30) mmol/L Anion Gap (5-15) MEQ/L BUN (7-17) mg/dL Creatinine (0.52-1.04) mg/dL Estimated GFR ML/MIN Glucose (74-106) mg/dL Calcium (8.4-10.2) mg/dL Total Bilirubin (0.2-1.3) mg/dL AST (14-36) U/L ALT (0-35) U/L Alkaline Phosphatase (38-126) U/L Troponin I (0.000-0.034) ng/mL Serum Total Protein (6.3-8.2) g/dL Albumin (3.5-5.0) g/dL Amylase (30-110) U/L Lipase (23-300) U/L Serum , Qual NEGATIVE (Negative) Urine Color YELLOW (YELLOW) Urine Appearance CLEAR (CLEAR) Urine pH 8.0 (5-6) Ur Specific [place] 1.005 (1.005-1.025) Urine Protein TRACE (Negative) Urine Ketones NEGATIVE (NEGATIVE) Urine Blood NEGATIVE (0-5) Jignesh/ul Urine Nitrite NEGATIVE (NEGATIVE) Urine Bilirubin SMALL (NEGATIVE) Urine Urobilinogen NORMAL (0-1) mg/dL Ur Leukocyte Esterase TRACE (NEGATIVE) Urine WBC (Auto) 6-10 (0-5) /HPF Urine RBC (Auto) 0-2 (0-2) /HPF U Epithel Cells (Auto) FEW (FEW) /HPF Urine Bacteria (Auto) FEW (NEGATIVE) /HPF Urine Mucus (Auto) SLIGHT (NEGATIVE) /HPF Urine Culture Reflexed YES (NO) Urine Glucose NEGATIVE (NEGATIVE) mg/dL Influenza Type A Ag NEGATIVE (NEGATIVE) Influenza Type B Ag NEGATIVE (NEGATIVE) RSV (PCR) NEGATIVE (Negative) 12/02/18 12/02/18 Range/Units 14:22 14:22 WBC 5.4 (4.0-10.5) K/mm3 RBC 4.57 (4.1-5.4) M/mm3 Hgb 14.3 (12.0-16.0) gm/dl Hct 42.6 (35-47) % MCV 93.2 (78-100) fl MCH 31.3 (26-32) pg MCHC 33.6 (32-36) g/dl RDW 13.6 (11.5-14.0) % Plt Count 123 L (150-450) K/mm3 MPV 9.7 H (6-9.5) fl Gran % 84.0 H (36.0-66.0) % Eos # (Auto) 0.02 (0-0.5) Absolute Lymphs (auto) 0.60 L (1.0-4.6) Absolute Monos (auto) 0.24 (0.0-1.3) Lymphocytes % 11.0 L (24.0-44.0) % Monocytes % 4.4 (0.0-12.0) % Eosinophils % 0.4 (0.00-5.0) % Basophils % 0.2 (0.0-0.4) % Absolute Granulocytes 4.57 (1.4-6.9) Basophils # 0.01 (0-0.4) Sodium 135 L (137-145) mmol/L Potassium 3.7 (3.5-5.1) mmol/L Chloride 101 (98-107) mmol/L Carbon Dioxide 24 (22-30) mmol/L Anion Gap 13.3 (5-15) MEQ/L BUN 19 H (7-17) mg/dL Creatinine 0.71 (0.52-1.04) mg/dL Estimated GFR > 60.0 ML/MIN Glucose 82 (74-106) mg/dL Calcium 8.7 (8.4-10.2) mg/dL Total Bilirubin 1.40 H (0.2-1.3) mg/dL AST 37 H (14-36) U/L ALT 33 (0-35) U/L Alkaline Phosphatase 86 (38-126) U/L Troponin I < 0.012 (0.000-0.034) ng/mL Serum Total Protein 8.1 (6.3-8.2) g/dL Albumin 4.7 (3.5-5.0) g/dL Amylase 82 (30-110) U/L Lipase 69 (23-300) U/L Serum , Qual (Negative) Urine Color (YELLOW) Urine Appearance (CLEAR) Urine pH (5-6) Ur Specific [place] (1.005-1.025) Urine Protein (Negative) Urine Ketones (NEGATIVE) Urine Blood (0-5) Jignesh/ul Urine Nitrite (NEGATIVE) Urine Bilirubin (NEGATIVE) Urine Urobilinogen (0-1) mg/dL Ur Leukocyte Esterase (NEGATIVE) Urine WBC (Auto) (0-5) /HPF Urine RBC (Auto) (0-2) /HPF U Epithel Cells (Auto) (FEW) /HPF Urine Bacteria (Auto) (NEGATIVE) /HPF Urine Mucus (Auto) (NEGATIVE) /HPF Urine Culture Reflexed (NO) Urine Glucose (NEGATIVE) mg/dL Influenza Type A Ag (NEGATIVE) Influenza Type B Ag (NEGATIVE) RSV (PCR) (Negative) - Progress Progress: improved Progress Note: 12/02/18 16:54 48-year-old white female arrives with complaint of general malaise she stated that she had some tightness with breathing she states she had persistent nausea and vomiting. Patient states her family has been sick all with similar symptoms. Patient afebrile but felt hot. Patient was given IV normal saline labs were essentially normal urinalysis was normal. Patient with a normal blood pressure but some mild hypotension after receiving Phenergan this is, up after IV normal saline but she continues to feel ill and nauseous. EKG sinus rhythm 85 bpm normal axis no acute ST or T wave changes normal EKG Patient's labs are stable. I've discussed the patient's case with Dr. Rivera will place patient on observation. Diagnosis persistent nausea and vomiting. Will place patient on D5 half-normal saline with 20 mEq of potassium chloride at 100 mL per hour continue Zofran continue serial enzymes and troponin. Obtain CBC CMP in the morning. - Departure Time of Disposition: 16:57 Departure Disposition: Observation Clinical Impression: persistent nausea and vomiting, Volume depletion Condition: Fair Critical Care Time: No Referrals: KAMAR RIVERA [Primary Care Provider] -
[2018-12-02] MEDS ORDERED: Sodium Chloride 0.9% 1000 ML 1,000 ML ONE ×2 (14:31→15:57)
[2018-12-02] MEDS ORDERED: Zofran 4 MG/2 ML VIAL ONE (14:31)
[2018-12-02 14:43] LABS: BASOPHIL % 0.2 % (0.0-0.4); Basophil (Absolute #) 0.01 (0-0.4); Eosinophil % 0.4 % (0.00-5.0); Eosinophil (Absolute #) 0.02 (0-0.5); Granulocyte Absolute (ANC) 4.57 (1.4-6.9); Hematocrit 42.6 % (35-47); Hemoglobin 14.3 gm/dl (12.0-16.0); Mean Cell Volume 93.2 fl (78-100); Mean Corpuscular Hemoglobin 31.3 pg (26-32); Mean Corpuscular Hgb Concent. 33.6 g/dl (32-36); Mean Platelet Volume 9.7 fl (6-9.5); Monocyte (Absolute #) 0.24 (0.0-1.3); Monocytes % 4.4 % (0.0-12.0); Platelet Count 123 K/mm3 (150-450); Red Blood Count 4.57 M/mm3 (4.1-5.4); Red Cell Distribution Width 13.6 % (11.5-14.0); White Blood Count 5.4 K/mm3 (4.0-10.5)
[2018-12-02 14:44] LABS: Appearance CLEAR (CLEAR)
[2018-12-02 14:45] LABS: Bilirubin SMALL (NEGATIVE); Blood NEGATIVE Ery/ul (0-5); Glucose NEGATIVE (NEGATIVE); Ketones NEGATIVE (NEGATIVE); Leukocyte Esterase TRACE (NEGATIVE); Nitrite NEGATIVE (NEGATIVE); Protein,Urine Dip TRACE (Negative); Specific Gravity 1.005 (1.005-1.025); Urobilinogen NORMAL mg/dL (0-1)
[2018-12-02 14:50] LABS: Mucus SLIGHT /HPF (NEGATIVE)
[2018-12-02 14:51] LABS: Bacteria FEW /HPF (NEGATIVE); Epithelial Cells FEW /HPF (FEW); RBC 0-2 /HPF (0-2)
[2018-12-02 15:14] LABS: ALBUMIN 4.7 g/dL (3.5-5.0); ALKALINE PHOSPHATASE 86 U/L (38-126); AMYLASE 82 U/L (30-110); ANION GAP 13.3 MEQ/L (5-15); BLOOD UREA NITROGEN 19 mg/dL (7-17); CHLORIDE 101 mmol/L (98-107); Calcium 8.7 mg/dL (8.4-10.2); Carbon Dioxide 24 mmol/L (22-30); Creatinine 1 0.71 mg/dL (0.52-1.04); Glucose 82 mg/dL (74-106); LIPASE 69 U/L (23-300); Potassium 3.7 mmol/L (3.5-5.1); SGOT/AST 37 U/L (14-36); SGPT/ALT 33 U/L (0-35); SODIUM 135 mmol/L (137-145); Total Protein 8.1 g/dL (6.3-8.2)
[2018-12-02 15:19] LABS: TROPONIN < 0.012 ng/mL (0.000-0.034)
[2018-12-02 15:20] LABS: INFLUENZA A NEGATIVE (NEGATIVE); INFLUENZA B NEGATIVE (NEGATIVE); RESPIRATORY SYNCTIAL VIRUS NEGATIVE (Negative)
[2018-12-02] MEDS ORDERED: Phenergan 25 MG INJ IM ONE (15:38)
[2018-12-02] MEDS ORDERED: Phenergan 25 MG INJ ONE (15:47)
[2018-12-02] MEDS ORDERED: Zofran 4 MG/2 ML VIAL IV PRN (17:16)
[2018-12-02] MEDS: D5W/0.45NS W/ 20mEq KCl 1000 ML 1,000 ML IV SCH (18:16)
[2018-12-03] MEDS: D5W/0.45NS W/ 20mEq KCl 1000 ML 1,000 ML IV SCH ×2 (03:03→13:47)
[2018-12-03 06:18] LABS: BASOPHIL % 0.4 % (0.0-0.4); Basophil (Absolute #) 0.01 (0-0.4); Eosinophil % 2.3 % (0.00-5.0); Eosinophil (Absolute #) 0.06 (0-0.5); Granulocyte Absolute (ANC) 1.45 (1.4-6.9); Granulocytes % 54.4 % (36.0-66.0); Hematocrit 35.4 % (35-47); Hemoglobin 11.5 gm/dl (12.0-16.0); Lymphocyte (Absolute #) 0.87 (1.0-4.6); Lymphocytes % 32.7 % (24.0-44.0); Mean Cell Volume 94.7 fl (78-100); Mean Corpuscular Hemoglobin 30.7 pg (26-32); Mean Corpuscular Hgb Concent. 32.5 g/dl (32-36); Mean Platelet Volume 9.3 fl (6-9.5); Monocyte (Absolute #) 0.27 (0.0-1.3); Monocytes % 10.2 % (0.0-12.0); Platelet Count 109 K/mm3 (150-450); Red Blood Count 3.74 M/mm3 (4.1-5.4); Red Cell Distribution Width 13.7 % (11.5-14.0); White Blood Count 2.7 K/mm3 (4.0-10.5)
[2018-12-03 06:32] LABS: ALBUMIN 3.1 g/dL (3.5-5.0); ALKALINE PHOSPHATASE 51 U/L (38-126); ANION GAP 9.1 MEQ/L (5-15); BLOOD UREA NITROGEN 7 mg/dL (7-17); CHLORIDE 109 mmol/L (98-107); Calcium 7.2 mg/dL (8.4-10.2); Carbon Dioxide 24 mmol/L (22-30); Creatinine 1 0.54 mg/dL (0.52-1.04); Glucose 95 mg/dL (74-106); SGOT/AST 25 U/L (14-36); SGPT/ALT 22 U/L (0-35); SODIUM 138 mmol/L (137-145); Total Protein 5.8 g/dL (6.3-8.2)
[2018-12-03] MEDS ORDERED: Pepcid 20 MG VIAL IV ONE ×2 (06:48→10:15)
--- NOTE | 2018-12-03 06:54 | PCM.SSS ---
History of Present Illness - Chief Complaint Chief Complaint: persistant nausea and vomiting History of Present Illness: is a 48 year old female pt of mine from [facility] with hypothyroidism who was admitted through ER for persistent nausea and vomiting. Several people in her family have had a similar illness. Pt started vomiting 2d ago and hasn't been tolerating po. She had subjective fever last night but none recorded. C/ o burning sensation in her chest, which she has had an issue with intermittently over the past 2 years. Currently not feeling nauseated and has tolerated po (CLD). Her main complaint this morning is "I just feel so weak." On admisison, her WBC were 5.4, this morning 2.7. Hgb was 14.3, now 11.5, and plt are 109, were 123 on admisison. BUN 19, Cr 0.71 on admission. Current BMP pending. Amylase and lipase were wnl. Troponin neg x 5. Resp panel negative. UA with 6-10 WBC, few epithelial cellx, UCx pending. - Review of Systems Constitutional: Weakness Cardiac: Chest Pain (burning) Neurological: Dizziness (last night) Psychological: Anxiety All Other Systems: Reviewed and Negative Medications & Allergies Home Medications: Home Medication List Clonazepam 0.5 mg [Klonopin 0.5 MG] 0.5 mg PO DIRECTIONS UNKNOWN 12/02/18 [History Confirmed 12/02/18] Levothyroxine Sodium 1 tab PO DAILY 12/02/18 [History Confirmed 12/02/18] Allergies/Adverse Reactions: Allergies Allergy/AdvReac Type Severity Reaction Status Date / Time Iodinated Contrast- Oral and Allergy Mild Itching Verified 12/02/18 14:09 IV Dye [Iodinated Contrast Media - IV Dye] sulfamethoxazole AdvReac abd pain Verified 12/02/18 14:10 [From Bactrim] trimethoprim [From Bactrim] AdvReac abd pain Verified 12/02/18 14:10 - Past Medical History Past Medical History: Yes Neurological History: No Pertinent History ENT History: No Pertinent History Cardiac History: No Pertinent History Respiratory History: No Pertinent History Endocrine Medical History: No Pertinent History Musculoskelatal History: No Pertinent History GI Medical History: No Pertinent History History: No Pertinent History Pyscho-Social History: No Pertinent History Reproductive Disorders: No Pertinent History Comment: thyroid problems - Female History Are you now?: No - Past Surgical History Past Surgical History: No Neuro Surgical History: No Pertinent History Cardiac History: No Pertinent History Respiratory Surgery: No Pertinent History GI Surgical History: No Pertinent History Genitourinary Surgical Hx: No Pertinent History Musculskeletal Surgical Hx: No Pertinent History Female Surgical History: Other Other Surgical History: D&C August 2013 - Social History Smoking Status: Never smoker Exposure to second hand smoke: No Alcohol: None Drug Use: none - Physical Exam Vital Signs: Vital Signs - 24 hr Temp Pulse Resp BP BP Pulse Ox 12/03/18 03:54 97.5 F 68 16 94/54 98 12/02/18 23:54 98.0 F 75 16 86/53 98 12/02/18 22:22 96 12/02/18 20:00 97.6 F 82 110/63 85/50 96 12/02/18 17:42 97.6 F 82 19 110/63 99 12/02/18 17:26 97.6 F 82 19 110/63 99 12/02/18 17:16 96 12/02/18 16:47 77 16 93/58 100 12/02/18 16:17 72 16 89/58 99 12/02/18 16:06 76 94/63 100 12/02/18 15:55 80 18 85/50 99 12/02/18 14:19 98.2 F 86 16 111/69 97 General Appearance: no apparent distress, alert Neurologic Exam: oriented x 3, cooperative Eye Exam: eyes nml inspection Ears, Nose, Throat Exam: moist mucous membranes Neck Exam: normal inspection Respiratory Exam: normal breath sounds, lungs clear, other (inferior sternum ttp ), No crackles/rales, No rhonchi, No wheezing Cardiovascular Exam: regular rate/rhythm, normal heart sounds, No murmur Gastrointestinal/Abdomen Exam: soft, normal bowel sounds, tenderness (epigastrum ), No distention, No mass, No guarding, No rebound Back Exam: normal inspection, No rash Extremity Exam: No pedal edema, No swelling Skin Exam: normal color, warm, dry, No rash Results - Labs Lab/Micro Results: Lab Results-Last 24 Hours 12/02/18 12/02/18 12/02/18 Range/Units 14:22 14:22 14:31 WBC 5.4 (4.0-10.5) K/mm3 RBC 4.57 (4.1-5.4) M/mm3 Hgb 14.3 (12.0-16.0) gm/dl Hct 42.6 (35-47) % MCV 93.2 (78-100) fl MCH 31.3 (26-32) pg MCHC 33.6 (32-36) g/dl RDW 13.6 (11.5-14.0) % Plt Count 123 L (150-450) K/mm3 MPV 9.7 H (6-9.5) fl Gran % 84.0 H (36.0-66.0) % Eos # (Auto) 0.02 (0-0.5) Absolute Lymphs (auto) 0.60 L (1.0-4.6) Absolute Monos (auto) 0.24 (0.0-1.3) Lymphocytes % 11.0 L (24.0-44.0) % Monocytes % 4.4 (0.0-12.0) % Eosinophils % 0.4 (0.00-5.0) % Basophils % 0.2 (0.0-0.4) % Absolute Granulocytes 4.57 (1.4-6.9) Basophils # 0.01 (0-0.4) Sodium 135 L (137-145) mmol/L Potassium 3.7 (3.5-5.1) mmol/L Chloride 101 (98-107) mmol/L Carbon Dioxide 24 (22-30) mmol/L Anion Gap 13.3 (5-15) MEQ/L BUN 19 H (7-17) mg/dL Creatinine 0.71 (0.52-1.04) mg/dL Estimated GFR > 60.0 ML/MIN Glucose 82 (74-106) mg/dL Calcium 8.7 (8.4-10.2) mg/dL Total Bilirubin 1.40 H (0.2-1.3) mg/dL AST 37 H (14-36) U/L ALT 33 (0-35) U/L Alkaline Phosphatase 86 (38-126) U/L Troponin I < 0.012 (0.000-0.034) ng/mL Serum Total Protein 8.1 (6.3-8.2) g/dL Albumin 4.7 (3.5-5.0) g/dL Amylase 82 (30-110) U/L Lipase 69 (23-300) U/L Serum , Qual (Negative) Urine Color YELLOW (YELLOW) Urine Appearance CLEAR (CLEAR) Urine pH 8.0 (5-6) Ur Specific [place] 1.005 (1.005-1.025) Urine Protein TRACE (Negative) Urine Ketones NEGATIVE (NEGATIVE) Urine Blood NEGATIVE (0-5) Jignesh/ul Urine Nitrite NEGATIVE (NEGATIVE) Urine Bilirubin SMALL (NEGATIVE) Urine Urobilinogen NORMAL (0-1) mg/dL Ur Leukocyte Esterase TRACE (NEGATIVE) Urine WBC (Auto) 6-10 (0-5) /HPF Urine RBC (Auto) 0-2 (0-2) /HPF U Epithel Cells (Auto) FEW (FEW) /HPF Urine Bacteria (Auto) FEW (NEGATIVE) /HPF Urine Mucus (Auto) SLIGHT (NEGATIVE) /HPF Urine Culture Reflexed YES (NO) Urine Glucose NEGATIVE (NEGATIVE) mg/dL Influenza Type A Ag (NEGATIVE) Influenza Type B Ag (NEGATIVE) RSV (PCR) (Negative) 12/02/18 12/02/18 12/02/18 Range/Units 18:00 20:05 23:50 WBC (4.0-10.5) K/mm3 RBC (4.1-5.4) M/mm3 Hgb (12.0-16.0) gm/dl Hct (35-47) % MCV (78-100) fl MCH (26-32) pg MCHC (32-36) g/dl RDW (11.5-14.0) % Plt Count (150-450) K/mm3 MPV (6-9.5) fl Gran % (36.0-66.0) % Eos # (Auto) (0-0.5) Absolute Lymphs (auto) (1.0-4.6) Absolute Monos (auto) (0.0-1.3) Lymphocytes % (24.0-44.0) % Monocytes % (0.0-12.0) % Eosinophils % (0.00-5.0) % Basophils % (0.0-0.4) % Absolute Granulocytes (1.4-6.9) Basophils # (0-0.4) Sodium (137-145) mmol/L Potassium (3.5-5.1) mmol/L Chloride (98-107) mmol/L Carbon Dioxide (22-30) mmol/L Anion Gap (5-15) MEQ/L BUN (7-17) mg/dL Creatinine (0.52-1.04) mg/dL Estimated GFR ML/MIN Glucose (74-106) mg/dL Calcium (8.4-10.2) mg/dL Total Bilirubin (0.2-1.3) mg/dL AST (14-36) U/L ALT (0-35) U/L Alkaline Phosphatase (38-126) U/L Troponin I < 0.012 < 0.012 < 0.012 (0.000-0.034) ng/mL Serum Total Protein (6.3-8.2) g/dL Albumin (3.5-5.0) g/dL Amylase (30-110) U/L Lipase (23-300) U/L Serum , Qual (Negative) Urine Color (YELLOW) Urine Appearance (CLEAR) Urine pH (5-6) Ur Specific [place] (1.005-1.025) Urine Protein (Negative) Urine Ketones (NEGATIVE) Urine Blood (0-5) Jignesh/ul Urine Nitrite (NEGATIVE) Urine Bilirubin (NEGATIVE) Urine Urobilinogen (0-1) mg/dL Ur Leukocyte Esterase (NEGATIVE) Urine WBC (Auto) (0-5) /HPF Urine RBC (Auto) (0-2) /HPF U Epithel Cells (Auto) (FEW) /HPF Urine Bacteria (Auto) (NEGATIVE) /HPF Urine Mucus (Auto) (NEGATIVE) /HPF Urine Culture Reflexed (NO) Urine Glucose (NEGATIVE) mg/dL Influenza Type A Ag (NEGATIVE) Influenza Type B Ag (NEGATIVE) RSV (PCR) (Negative) 12/02/18 12/02/18 12/03/18 Range/Units Unknown Unknown 02:40 WBC (4.0-10.5) K/mm3 RBC (4.1-5.4) M/mm3 Hgb (12.0-16.0) gm/dl Hct (35-47) % MCV (78-100) fl MCH (26-32) pg MCHC (32-36) g/dl RDW (11.5-14.0) % Plt Count (150-450) K/mm3 MPV (6-9.5) fl Gran % (36.0-66.0) % Eos # (Auto) (0-0.5) Absolute Lymphs (auto) (1.0-4.6) Absolute Monos (auto) (0.0-1.3) Lymphocytes % (24.0-44.0) % Monocytes % (0.0-12.0) % Eosinophils % (0.00-5.0) % Basophils % (0.0-0.4) % Absolute Granulocytes (1.4-6.9) Basophils # (0-0.4) Sodium (137-145) mmol/L Potassium (3.5-5.1) mmol/L Chloride (98-107) mmol/L Carbon Dioxide (22-30) mmol/L Anion Gap (5-15) MEQ/L BUN (7-17) mg/dL Creatinine (0.52-1.04) mg/dL Estimated GFR ML/MIN Glucose (74-106) mg/dL Calcium (8.4-10.2) mg/dL Total Bilirubin (0.2-1.3) mg/dL AST (14-36) U/L ALT (0-35) U/L Alkaline Phosphatase (38-126) U/L Troponin I < 0.012 (0.000-0.034) ng/mL Serum Total Protein (6.3-8.2) g/dL Albumin (3.5-5.0) g/dL Amylase (30-110) U/L Lipase (23-300) U/L Serum , Qual NEGATIVE (Negative) Urine Color (YELLOW) Urine Appearance (CLEAR) Urine pH (5-6) Ur Specific [place] (1.005-1.025) Urine Protein (Negative) Urine Ketones (NEGATIVE) Urine Blood (0-5) Jignesh/ul Urine Nitrite (NEGATIVE) Urine Bilirubin (NEGATIVE) Urine Urobilinogen (0-1) mg/dL Ur Leukocyte Esterase (NEGATIVE) Urine WBC (Auto) (0-5) /HPF Urine RBC (Auto) (0-2) /HPF U Epithel Cells (Auto) (FEW) /HPF Urine Bacteria (Auto) (NEGATIVE) /HPF Urine Mucus (Auto) (NEGATIVE) /HPF Urine Culture Reflexed (NO) Urine Glucose (NEGATIVE) mg/dL Influenza Type A Ag NEGATIVE (NEGATIVE) Influenza Type B Ag NEGATIVE (NEGATIVE) RSV (PCR) NEGATIVE (Negative) 12/03/18 Range/Units 05:55 WBC 2.7 L (4.0-10.5) K/mm3 RBC 3.74 L (4.1-5.4) M/mm3 Hgb 11.5 L (12.0-16.0) gm/dl Hct 35.4 (35-47) % MCV 94.7 (78-100) fl MCH 30.7 (26-32) pg MCHC 32.5 (32-36) g/dl RDW 13.7 (11.5-14.0) % Plt Count 109 L (150-450) K/mm3 MPV 9.3 (6-9.5) fl Gran % 54.4 (36.0-66.0) % Eos # (Auto) 0.06 (0-0.5) Absolute Lymphs (auto) 0.87 L (1.0-4.6) Absolute Monos (auto) 0.27 (0.0-1.3) Lymphocytes % 32.7 (24.0-44.0) % Monocytes % 10.2 (0.0-12.0) % Eosinophils % 2.3 (0.00-5.0) % Basophils % 0.4 (0.0-0.4) % Absolute Granulocytes 1.45 (1.4-6.9) Basophils # 0.01 (0-0.4) Sodium (137-145) mmol/L Potassium (3.5-5.1) mmol/L Chloride (98-107) mmol/L Carbon Dioxide (22-30) mmol/L Anion Gap (5-15) MEQ/L BUN (7-17) mg/dL Creatinine (0.52-1.04) mg/dL Estimated GFR ML/MIN Glucose (74-106) mg/dL Calcium (8.4-10.2) mg/dL Total Bilirubin (0.2-1.3) mg/dL AST (14-36) U/L ALT (0-35) U/L Alkaline Phosphatase (38-126) U/L Troponin I (0.000-0.034) ng/mL Serum Total Protein (6.3-8.2) g/dL Albumin (3.5-5.0) g/dL Amylase (30-110) U/L Lipase (23-300) U/L Serum , Qual (Negative) Urine Color (YELLOW) Urine Appearance (CLEAR) Urine pH (5-6) Ur Specific [place] (1.005-1.025) Urine Protein (Negative) Urine Ketones (NEGATIVE) Urine Blood (0-5) Jignesh/ul Urine Nitrite (NEGATIVE) Urine Bilirubin (NEGATIVE) Urine Urobilinogen (0-1) mg/dL Ur Leukocyte Esterase (NEGATIVE) Urine WBC (Auto) (0-5) /HPF Urine RBC (Auto) (0-2) /HPF U Epithel Cells (Auto) (FEW) /HPF Urine Bacteria (Auto) (NEGATIVE) /HPF Urine Mucus (Auto) (NEGATIVE) /HPF Urine Culture Reflexed (NO) Urine Glucose (NEGATIVE) mg/dL Influenza Type A Ag (NEGATIVE) Influenza Type B Ag (NEGATIVE) RSV (PCR) (Negative) Assessment/Plan (1) Vomiting Current Visit: No Status: Acute Qualifiers: Vomiting type: unspecified Vomiting Intractability: non-intractable Nausea presence: with nausea Qualified Code(s): R11.2 - Nausea with vomiting, unspecified Assessment & Plan: Improved; advance to FLD at breakfast. If tolerating that well, advance to bland diet at lunch. If she is tolerating po and up out of bed without assist, she can go home after lunch. Code(s): R11.10 - VOMITING, UNSPECIFIED (2) Atypical chest pain Current Visit: No Status: Chronic Assessment & Plan: troponins neg x 5. Code(s): R07.89 - OTHER CHEST PAIN Hospital Summary - Hospital Course Hospital Course: Pt admitted through ER with nausea and vomiting. Was given anti-emetics x 2. No current nausea; if tolerates po can discharge to home today. Her labs are non acute. She does have a mild thrombocytopenia which will be followed up in1 week. - Vitals & Intake/Output Vital Signs: Vital Signs Temperature 97.5 F 12/03/18 03:54 Pulse Rate 68 12/03/18 03:54 Respiratory Rate 16 12/03/18 03:54 Blood Pressure 94/54 12/03/18 03:54 O2 Sat by Pulse Oximetry 98 12/03/18 03:54 Intake & Output: Intake & Output 11/30/18 12/01/18 12/02/18 12/03/18 11:59 11:59 11:59 11:59 Intake Total 2640 Balance 2640 Weight 68.4 kg - Lab Result Diagrams: 12/03/18 05:55 12/02/18 14:22 Lab Results-Last 24 Hrs: Lab Results-Last 24 Hours 12/02/18 12/02/18 12/02/18 Range/Units 14:22 14:22 14:31 WBC 5.4 (4.0-10.5) K/mm3 RBC 4.57 (4.1-5.4) M/mm3 Hgb 14.3 (12.0-16.0) gm/dl Hct 42.6 (35-47) % MCV 93.2 (78-100) fl MCH 31.3 (26-32) pg MCHC 33.6 (32-36) g/dl RDW 13.6 (11.5-14.0) % Plt Count 123 L (150-450) K/mm3 MPV 9.7 H (6-9.5) fl Gran % 84.0 H (36.0-66.0) % Eos # (Auto) 0.02 (0-0.5) Absolute Lymphs (auto) 0.60 L (1.0-4.6) Absolute Monos (auto) 0.24 (0.0-1.3) Lymphocytes % 11.0 L (24.0-44.0) % Monocytes % 4.4 (0.0-12.0) % Eosinophils % 0.4 (0.00-5.0) % Basophils % 0.2 (0.0-0.4) % Absolute Granulocytes 4.57 (1.4-6.9) Basophils # 0.01 (0-0.4) Sodium 135 L (137-145) mmol/L Potassium 3.7 (3.5-5.1) mmol/L Chloride 101 (98-107) mmol/L Carbon Dioxide 24 (22-30) mmol/L Anion Gap 13.3 (5-15) MEQ/L BUN 19 H (7-17) mg/dL Creatinine 0.71 (0.52-1.04) mg/dL Estimated GFR > 60.0 ML/MIN Glucose 82 (74-106) mg/dL Calcium 8.7 (8.4-10.2) mg/dL Total Bilirubin 1.40 H (0.2-1.3) mg/dL AST 37 H (14-36) U/L ALT 33 (0-35) U/L Alkaline Phosphatase 86 (38-126) U/L Troponin I < 0.012 (0.000-0.034) ng/mL Serum Total Protein 8.1 (6.3-8.2) g/dL Albumin 4.7 (3.5-5.0) g/dL Amylase 82 (30-110) U/L Lipase 69 (23-300) U/L Serum , Qual (Negative) Urine Color YELLOW (YELLOW) Urine Appearance CLEAR (CLEAR) Urine pH 8.0 (5-6) Ur Specific [place] 1.005 (1.005-1.025) Urine Protein TRACE (Negative) Urine Ketones NEGATIVE (NEGATIVE) Urine Blood NEGATIVE (0-5) Jignesh/ul Urine Nitrite NEGATIVE (NEGATIVE) Urine Bilirubin SMALL (NEGATIVE) Urine Urobilinogen NORMAL (0-1) mg/dL Ur Leukocyte Esterase TRACE (NEGATIVE) Urine WBC (Auto) 6-10 (0-5) /HPF Urine RBC (Auto) 0-2 (0-2) /HPF U Epithel Cells (Auto) FEW (FEW) /HPF Urine Bacteria (Auto) FEW (NEGATIVE) /HPF Urine Mucus (Auto) SLIGHT (NEGATIVE) /HPF Urine Culture Reflexed YES (NO) Urine Glucose NEGATIVE (NEGATIVE) mg/dL Influenza Type A Ag (NEGATIVE) Influenza Type B Ag (NEGATIVE) RSV (PCR) (Negative) 12/02/18 12/02/18 12/02/18 Range/Units 18:00 20:05 23:50 WBC (4.0-10.5) K/mm3 RBC (4.1-5.4) M/mm3 Hgb (12.0-16.0) gm/dl Hct (35-47) % MCV (78-100) fl MCH (26-32) pg MCHC (32-36) g/dl RDW (11.5-14.0) % Plt Count (150-450) K/mm3 MPV (6-9.5) fl Gran % (36.0-66.0) % Eos # (Auto) (0-0.5) Absolute Lymphs (auto) (1.0-4.6) Absolute Monos (auto) (0.0-1.3) Lymphocytes % (24.0-44.0) % Monocytes % (0.0-12.0) % Eosinophils % (0.00-5.0) % Basophils % (0.0-0.4) % Absolute Granulocytes (1.4-6.9) Basophils # (0-0.4) Sodium (137-145) mmol/L Potassium (3.5-5.1) mmol/L Chloride (98-107) mmol/L Carbon Dioxide (22-30) mmol/L Anion Gap (5-15) MEQ/L BUN (7-17) mg/dL Creatinine (0.52-1.04) mg/dL Estimated GFR ML/MIN Glucose (74-106) mg/dL Calcium (8.4-10.2) mg/dL Total Bilirubin (0.2-1.3) mg/dL AST (14-36) U/L ALT (0-35) U/L Alkaline Phosphatase (38-126) U/L Troponin I < 0.012 < 0.012 < 0.012 (0.000-0.034) ng/mL Serum Total Protein (6.3-8.2) g/dL Albumin (3.5-5.0) g/dL Amylase (30-110) U/L Lipase (23-300) U/L Serum , Qual (Negative) Urine Color (YELLOW) Urine Appearance (CLEAR) Urine pH (5-6) Ur Specific [place] (1.005-1.025) Urine Protein (Negative) Urine Ketones (NEGATIVE) Urine Blood (0-5) Jignesh/ul Urine Nitrite (NEGATIVE) Urine Bilirubin (NEGATIVE) Urine Urobilinogen (0-1) mg/dL Ur Leukocyte Esterase (NEGATIVE) Urine WBC (Auto) (0-5) /HPF Urine RBC (Auto) (0-2) /HPF U Epithel Cells (Auto) (FEW) /HPF Urine Bacteria (Auto) (NEGATIVE) /HPF Urine Mucus (Auto) (NEGATIVE) /HPF Urine Culture Reflexed (NO) Urine Glucose (NEGATIVE) mg/dL Influenza Type A Ag (NEGATIVE) Influenza Type B Ag (NEGATIVE) RSV (PCR) (Negative) 12/02/18 12/02/18 12/03/18 Range/Units Unknown Unknown 02:40 WBC (4.0-10.5) K/mm3 RBC (4.1-5.4) M/mm3 Hgb (12.0-16.0) gm/dl Hct (35-47) % MCV (78-100) fl MCH (26-32) pg MCHC (32-36) g/dl RDW (11.5-14.0) % Plt Count (150-450) K/mm3 MPV (6-9.5) fl Gran % (36.0-66.0) % Eos # (Auto) (0-0.5) Absolute Lymphs (auto) (1.0-4.6) Absolute Monos (auto) (0.0-1.3) Lymphocytes % (24.0-44.0) % Monocytes % (0.0-12.0) % Eosinophils % (0.00-5.0) % Basophils % (0.0-0.4) % Absolute Granulocytes (1.4-6.9) Basophils # (0-0.4) Sodium (137-145) mmol/L Potassium (3.5-5.1) mmol/L Chloride (98-107) mmol/L Carbon Dioxide (22-30) mmol/L Anion Gap (5-15) MEQ/L BUN (7-17) mg/dL Creatinine (0.52-1.04) mg/dL Estimated GFR ML/MIN Glucose (74-106) mg/dL Calcium (8.4-10.2) mg/dL Total Bilirubin (0.2-1.3) mg/dL AST (14-36) U/L ALT (0-35) U/L Alkaline Phosphatase (38-126) U/L Troponin I < 0.012 (0.000-0.034) ng/mL Serum Total Protein (6.3-8.2) g/dL Albumin (3.5-5.0) g/dL Amylase (30-110) U/L Lipase (23-300) U/L Serum , Qual NEGATIVE (Negative) Urine Color (YELLOW) Urine Appearance (CLEAR) Urine pH (5-6) Ur Specific [place] (1.005-1.025) Urine Protein (Negative) Urine Ketones (NEGATIVE) Urine Blood (0-5) Jignesh/ul Urine Nitrite (NEGATIVE) Urine Bilirubin (NEGATIVE) Urine Urobilinogen (0-1) mg/dL Ur Leukocyte Esterase (NEGATIVE) Urine WBC (Auto) (0-5) /HPF Urine RBC (Auto) (0-2) /HPF U Epithel Cells (Auto) (FEW) /HPF Urine Bacteria (Auto) (NEGATIVE) /HPF Urine Mucus (Auto) (NEGATIVE) /HPF Urine Culture Reflexed (NO) Urine Glucose (NEGATIVE) mg/dL Influenza Type A Ag NEGATIVE (NEGATIVE) Influenza Type B Ag NEGATIVE (NEGATIVE) RSV (PCR) NEGATIVE (Negative) 12/03/18 Range/Units 05:55 WBC 2.7 L (4.0-10.5) K/mm3 RBC 3.74 L (4.1-5.4) M/mm3 Hgb 11.5 L (12.0-16.0) gm/dl Hct 35.4 (35-47) % MCV 94.7 (78-100) fl MCH 30.7 (26-32) pg MCHC 32.5 (32-36) g/dl RDW 13.7 (11.5-14.0) % Plt Count 109 L (150-450) K/mm3 MPV 9.3 (6-9.5) fl Gran % 54.4 (36.0-66.0) % Eos # (Auto) 0.06 (0-0.5) Absolute Lymphs (auto) 0.87 L (1.0-4.6) Absolute Monos (auto) 0.27 (0.0-1.3) Lymphocytes % 32.7 (24.0-44.0) % Monocytes % 10.2 (0.0-12.0) % Eosinophils % 2.3 (0.00-5.0) % Basophils % 0.4 (0.0-0.4) % Absolute Granulocytes 1.45 (1.4-6.9) Basophils # 0.01 (0-0.4) Sodium (137-145) mmol/L Potassium (3.5-5.1) mmol/L Chloride (98-107) mmol/L Carbon Dioxide (22-30) mmol/L Anion Gap (5-15) MEQ/L BUN (7-17) mg/dL Creatinine (0.52-1.04) mg/dL Estimated GFR ML/MIN Glucose (74-106) mg/dL Calcium (8.4-10.2) mg/dL Total Bilirubin (0.2-1.3) mg/dL AST (14-36) U/L ALT (0-35) U/L Alkaline Phosphatase (38-126) U/L Troponin I (0.000-0.034) ng/mL Serum Total Protein (6.3-8.2) g/dL Albumin (3.5-5.0) g/dL Amylase (30-110) U/L Lipase (23-300) U/L Serum , Qual (Negative) Urine Color (YELLOW) Urine Appearance (CLEAR) Urine pH (5-6) Ur Specific [place] (1.005-1.025) Urine Protein (Negative) Urine Ketones (NEGATIVE) Urine Blood (0-5) Jignesh/ul Urine Nitrite (NEGATIVE) Urine Bilirubin (NEGATIVE) Urine Urobilinogen (0-1) mg/dL Ur Leukocyte Esterase (NEGATIVE) Urine WBC (Auto) (0-5) /HPF Urine RBC (Auto) (0-2) /HPF U Epithel Cells (Auto) (FEW) /HPF Urine Bacteria (Auto) (NEGATIVE) /HPF Urine Mucus (Auto) (NEGATIVE) /HPF Urine Culture Reflexed (NO) Urine Glucose (NEGATIVE) mg/dL Influenza Type A Ag (NEGATIVE) Influenza Type B Ag (NEGATIVE) RSV (PCR) (Negative) - Discharge Disposition: Home, Self-Care Condition: Fair Prescriptions: No Action Clonazepam 0.5 mg [Klonopin 0.5 MG] 0.5 mg PO DIRECTIONS UNKNOWN Levothyroxine Sodium 1 tab PO DAILY Follow up with: KAMAR BURROUGHS [Primary Care Provider] - 1 Week
[2018-12-03] MEDS ORDERED: Klonopin 0.5 MG PO SCH (07:45)
[2018-12-03 08:19] VITALS: PULSE 66; O2SAT 97
[2018-12-03] MEDS ORDERED: SYNTHROID 25 MCG PO SCH (10:00)
[2018-12-03 12:27] VITALS: BP 85/50
== END 2018-12-03 14:54 | disposition home or self-care (01) ==
LOC: ED 14:03 → MED SURG 17:14
PROVIDERS: ADMIT Family Medicine; ATTEND Family Medicine
DX: R11.2 Nausea with vomiting, unspecified (principal); R07.89 Other chest pain; E03.9 Hypothyroidism, unspecified; R42 Dizziness and giddiness; F41.9 Anxiety disorder, unspecified; Z79.899 Other long term (current) drug therapy
CPT/HCPCS: 36415; 80053; 81001; 81025; 82150; 83690; 84484; 85025; 87086; 87631; 93005; 93268; 94762; 96360; 96361; 96372; 96374; 99285; G0378; J2405; J2550; A9270-GY

== ENCOUNTER 2018-12-16 07:50 | Emergency (ER) | payer OTHER ==
[2018-12-16] MEDS ORDERED: Sodium Chloride 0.9% 1000 ML 1,000 ML IV STA (08:14)
[2018-12-16 08:35] LABS: BASOPHIL % 0.2 % (0.0-0.4); Basophil (Absolute #) 0.01 (0-0.4); Eosinophil % 1.6 % (0.00-5.0); Eosinophil (Absolute #) 0.07 (0-0.5); Granulocyte Absolute (ANC) 2.65 (1.4-6.9); Granulocytes % 59.4 % (36.0-66.0); Hematocrit 42.8 % (35-47); Hemoglobin 14.3 gm/dl (12.0-16.0); Lymphocyte (Absolute #) 1.22 (1.0-4.6); Lymphocytes % 27.4 % (24.0-44.0); Mean Cell Volume 93.2 fl (78-100); Mean Corpuscular Hemoglobin 31.2 pg (26-32); Mean Corpuscular Hgb Concent. 33.4 g/dl (32-36); Mean Platelet Volume 9.4 fl (6-9.5); Monocyte (Absolute #) 0.51 (0.0-1.3); Monocytes % 11.4 % (0.0-12.0); Platelet Count 154 K/mm3 (150-450); Red Blood Count 4.59 M/mm3 (4.1-5.4); Red Cell Distribution Width 13.5 % (11.5-14.0); White Blood Count 4.5 K/mm3 (4.0-10.5)
[2018-12-16] MEDS ORDERED: Sodium Chloride 0.9% 1000 ML 1,000 ML ONE (08:41)
[2018-12-16 08:42] LABS: Appearance CLOUDY (CLEAR); Bilirubin NEGATIVE (NEGATIVE); Blood NEGATIVE Ery/ul (0-5); Epithelial Cells PACKED /HPF (FEW); Glucose NEGATIVE (NEGATIVE); Ketones NEGATIVE (NEGATIVE); Leukocyte Esterase LARGE (NEGATIVE); Mucus SLIGHT /HPF (NEGATIVE); Nitrite NEGATIVE (NEGATIVE); Non-Squamous Epithelial Cells RARE /HPF (FEW); Protein,Urine Dip NEGATIVE (Negative); Specific Gravity 1.023 (1.005-1.025); Urobilinogen NEGATIVE mg/dL (0-1); WBC 51-100 /HPF (0-5)
[2018-12-16 08:44] LABS: Bacteria FEW /HPF (NEGATIVE); Budding Yeast Few /HPF (NEGATIVE)
[2018-12-16 08:45] LABS: Hyphae Yeast Occasional /HPF (NEGATIVE)
[2018-12-16 08:59] LABS: ALBUMIN 4.7 g/dL (3.5-5.0); ALKALINE PHOSPHATASE 73 U/L (38-126); AMYLASE 80 U/L (30-110); ANION GAP 13.9 MEQ/L (5-15); BLOOD UREA NITROGEN 9 mg/dL (7-17); CHLORIDE 108 mmol/L (98-107); Calcium 9.1 mg/dL (8.4-10.2); Carbon Dioxide 21 mmol/L (22-30); Creatinine 1 0.71 mg/dL (0.52-1.04); Glucose 88 mg/dL (74-106); LIPASE 91 U/L (23-300); Potassium 4.3 mmol/L (3.5-5.1); SGOT/AST 37 U/L (14-36); SGPT/ALT 24 U/L (0-35); SODIUM 139 mmol/L (137-145); Total Protein 8.3 g/dL (6.3-8.2)
[2018-12-16] MEDS ORDERED: ROCEPHIN 1 Gm-D5w 50 ml Bag** 1 G/50 ML IVPB IV STA (10:04)
[2018-12-16] MEDS ORDERED: ROCEPHIN 1 Gm-D5w 50 ml Bag** 1 G/50 ML IVPB IV ONE (10:10)
[2018-12-16] MEDS ORDERED: TYLENOL EXTRA STRENGTH 500 MG PO STA (10:16)
[2018-12-16] MEDS ORDERED: TYLENOL EXTRA STRENGTH 500 MG ONE (10:28)
[2018-12-16 11:09] VITALS: O2SAT 98
--- NOTE | 2018-12-16 12:05 | ERPHSYRPT ---
- History of Present Illness Historian: patient Exam Limitations: no limitations Patient Subjective Stated Complaint: vomiting/diarrhea for three days. Triage Nursing Assessment: ambulated to room per self. skin w/d, color pale, resp nonlabored. patient holding abd. no diarrhea at present. Physician History: Pt states, that had N/V/D on and off for over two weeks. Pt was hospitalized in the hospital for the same presentation, was given IVF and hydration and was d /c to home. She was feeling well, but yesterday started having vomiting and diarrhea again, and presented to the ED. Pt denies F/C/S. No cough or SOB. Pt denies dysuria, frequency and urgency, and states, has also chest discomfort that radiated to her left arm. Pt states, had cardiac work up (not sure what), and r/o cardiac problem. Timing/Duration: yesterday Activities at Onset: none Abdominal Pain Onset Location: generalized abdomen Pain Radiation: no radiation Severity of Pain-Max: mild Severity of Pain-Current: mild Modifying Factors: Improves With: eating Associated Symptoms: diarrhea, nausea, vomiting Allergies/Adverse Reactions: Iodinated Contrast- Oral and IV Dye [Iodinated Contrast Media - IV Dye] Allergy (Mild, Verified 12/16/18 08:01) Itching sulfamethoxazole [From Bactrim] Adverse Reaction (Verified 12/16/18 08:01) abd pain trimethoprim [From Bactrim] Adverse Reaction (Verified 12/16/18 08:01) abd pain Home Medications: Clonazepam 0.5 mg [Klonopin 0.5 MG] 0.5 mg PO DIRECTIONS UNKNOWN 12/02/18 [History] Levothyroxine Sodium 1 tab PO DAILY 12/02/18 [History] Hx Tetanus, Diphtheria Vaccination/Date Given: No Hx Influenza Vaccination/Date Given: No Hx Pneumococcal Vaccination/Date Given: No - Review of Systems Constitutional: No Fever, No Chills Eyes: No Symptoms Ears, Nose, & Throat: No Symptoms Respiratory: No Cough, No Dyspnea Cardiac: Chest Pain, Other (radiates to L arm) Abdominal/Gastrointestinal: Abdominal Pain, Nausea, Vomiting, Diarrhea Genitourinary Symptoms: No Dysuria Musculoskeletal: No Back Pain, No Neck Pain Neurological: No Dizziness, No Focal Weakness, No Sensory Changes - Past Medical History Pertinent Past Medical History: Yes Neurological History: No Pertinent History ENT History: No Pertinent History Cardiac History: No Pertinent History Respiratory History: No Pertinent History Endocrine Medical History: No Pertinent History Musculoskeletal History: No Pertinent History GI Medical History: No Pertinent History History: No Pertinent History Psycho-Social History: No Pertinent History Female Reproductive Disorders: No Pertinent History Other Medical History: thyroid problems - Past Surgical History Past Surgical History: No Neuro Surgical History: No Pertinent History Cardiac: No Pertinent History Respiratory: No Pertinent History Gastrointestinal: No Pertinent History Genitourinary: No Pertinent History Musculoskeletal: No Pertinent History Female Surgical History: Other Other Surgical History: D&C August 2013 - Social History Smoking Status: Never smoker Exposure to second hand smoke: No Drug Use: none Patient Lives Alone: No - Female History Hx Last Menstrual Period: three weeks ago Hx Now: No - Nursing Vital Signs Nursing Vital Signs: Initial Vital Signs Temperature 97.9 F 12/16/18 07:59 Pulse Rate 82 12/16/18 07:59 Respiratory Rate 16 12/16/18 07:59 Blood Pressure 117/77 12/16/18 07:59 O2 Sat by Pulse Oximetry 98 12/16/18 07:59 Pain Scale Pain Intensity 0 - Physical Exam General Appearance: no apparent distress, alert Eye Exam: PERRL/EOMI, eyes nml inspection Ears, Nose, Throat Exam: normal ENT inspection, pharynx normal, moist mucous membranes Neck Exam: normal inspection, non-tender, supple, full range of motion Respiratory Exam: normal breath sounds, lungs clear, No respiratory distress Cardiovascular Exam: regular rate/rhythm, normal heart sounds Gastrointestinal/Abdomen Exam: soft, tenderness (mostly suprapubic ), No mass Back Exam: normal inspection, normal range of motion, No CVA tenderness, No vertebral tenderness Extremity Exam: normal inspection, normal range of motion, pelvis stable Neurologic Exam: alert, oriented x 3, cooperative, normal mood/affect, nml cerebellar function, sensation nml, No motor deficits SpO2: 98 - Course Nursing assessment & vital signs reviewed: Yes EKG Interpreted by Me: RATE, Sinus Rhythm, NORMAL ST-T Ordered Tests: Active Orders 24 hr Category Date Time Status EKG-ER Only STAT Care 12/16/18 08:17 Active IV Insertion STAT Care 12/16/18 08:14 Active AMYLASE Stat Lab 12/16/18 08:35 Completed CBC W DIFF Stat Lab 12/16/18 08:35 Completed CMP Stat Lab 12/16/18 08:35 Completed CULTURE,URINE Stat Lab 12/16/18 08:35 Received LIPASE Stat Lab 12/16/18 08:35 Completed Occult Blood, Other Screening Stat Lab 12/16/18 08:15 Uncollected TROPONIN Q3H Lab 12/16/18 08:35 Completed UA W/RFX UR CULTURE Stat Lab 12/16/18 08:35 Completed Medication Summary Discontinued Medications Generic Name Dose Route Start Last Admin Trade Name Vitor PRN Reason Stop Dose Admin Acetaminophen 1,000 mg 12/16/18 10:16 12/16/18 10:31 Tylenol Extra Strength 500 Mg PO 12/16/18 10:17 1,000 mg STAT STA Administration Acetaminophen Confirm 12/16/18 10:28 Tylenol Extra Strength 500 Mg Administered 12/16/18 10:29 Dose 1,000 mg .ROUTE .STK-MED ONE Sodium Chloride 1,000 mls @ 999 mls/hr 12/16/18 08:14 12/16/18 10:03 Sodium Chloride 0.9% 1000 Ml IV 12/16/18 09:14 Infused .Q1H1M STA Infusion Sodium Chloride Confirm 12/16/18 08:41 Sodium Chloride 0.9% 1000 Ml Administered 12/16/18 08:42 Dose 1,000 mls @ ud .ROUTE .STK-MED ONE Ceftriaxone Sodium/Dextrose 1 g in 50 mls @ 100 mls/hr 12/16/18 10:04 11:39 Rocephin 1 Gm-D5w 50 Ml Bag IV 12/16/18 10:33 Infused STAT STA Infusion Ceftriaxone Sodium/Dextrose Confirm 12/16/18 10:10 Rocephin 1 Gm-D5w 50 Ml Bag Administered 12/16/18 10:11 Dose 1 g in 50 mls @ ud IV .STK-MED ONE Lab/Rad Data: Laboratory Result Diagrams 12/16/18 08:35 12/16/18 08:35 Laboratory Results 12/16/18 12/16/18 12/16/18 Range/Units 08:35 08:35 08:35 WBC (4.0-10.5) K/mm3 RBC (4.1-5.4) M/mm3 Hgb (12.0-16.0) gm/dl Hct (35-47) % MCV (78-100) fl MCH (26-32) pg MCHC (32-36) g/dl RDW (11.5-14.0) % Plt Count (150-450) K/mm3 MPV (6-9.5) fl Gran % (36.0-66.0) % Eos # (Auto) (0-0.5) Absolute Lymphs (auto) (1.0-4.6) Absolute Monos (auto) (0.0-1.3) Lymphocytes % (24.0-44.0) % Monocytes % (0.0-12.0) % Eosinophils % (0.00-5.0) % Basophils % (0.0-0.4) % Absolute Granulocytes (1.4-6.9) Basophils # (0-0.4) Sodium 139 (137-145) mmol/L Potassium 4.3 (3.5-5.1) mmol/L Chloride 108 H (98-107) mmol/L Carbon Dioxide 21 L (22-30) mmol/L Anion Gap 13.9 (5-15) MEQ/L BUN 9 (7-17) mg/dL Creatinine 0.71 (0.52-1.04) mg/dL Estimated GFR > 60.0 ML/MIN Glucose 88 (74-106) mg/dL Calcium 9.1 (8.4-10.2) mg/dL Total Bilirubin 1.00 (0.2-1.3) mg/dL AST 37 H (14-36) U/L ALT 24 (0-35) U/L Alkaline Phosphatase 73 (38-126) U/L Troponin I < 0.012 (0.000-0.034) ng/mL Serum Total Protein 8.3 H (6.3-8.2) g/dL Albumin 4.7 (3.5-5.0) g/dL Amylase 80 (30-110) U/L Lipase 91 (23-300) U/L Urine Color JULY (YELLOW) Urine Appearance CLOUDY (CLEAR) Urine pH 5.0 (5-6) Ur Specific [place] 1.023 (1.005-1.025) Urine Protein NEGATIVE (Negative) Urine Ketones NEGATIVE (NEGATIVE) Urine Blood NEGATIVE (0-5) Jignesh/ul Urine Nitrite NEGATIVE (NEGATIVE) Urine Bilirubin NEGATIVE (NEGATIVE) Urine Urobilinogen NEGATIVE (0-1) mg/dL Ur Leukocyte Esterase LARGE (NEGATIVE) Urine WBC (Auto) 51-100 (0-5) /HPF Urine RBC (Auto) 6-10 (0-2) /HPF U Epithel Cells (Auto) PACKED (FEW) /HPF Urine Bacteria (Auto) FEW (NEGATIVE) /HPF U Non-Squamous Epi Cells RARE (FEW) /HPF Unidentified Crystals 2-5 (NEGATIVE) /HPF Urine Mucus (Auto) SLIGHT (NEGATIVE) /HPF Ur Yeast w Hyphae Occasional (NEGATIVE) /HPF Urine Yeast (Budding) Few (NEGATIVE) /HPF Urine Culture Reflexed YES (NO) Urine Glucose NEGATIVE (NEGATIVE) mg/dL 12/16/18 Range/Units 08:35 WBC 4.5 (4.0-10.5) K/mm3 RBC 4.59 (4.1-5.4) M/mm3 Hgb 14.3 (12.0-16.0) gm/dl Hct 42.8 (35-47) % MCV 93.2 (78-100) fl MCH 31.2 (26-32) pg MCHC 33.4 (32-36) g/dl RDW 13.5 (11.5-14.0) % Plt Count 154 (150-450) K/mm3 MPV 9.4 (6-9.5) fl Gran % 59.4 (36.0-66.0) % Eos # (Auto) 0.07 (0-0.5) Absolute Lymphs (auto) 1.22 (1.0-4.6) Absolute Monos (auto) 0.51 (0.0-1.3) Lymphocytes % 27.4 (24.0-44.0) % Monocytes % 11.4 (0.0-12.0) % Eosinophils % 1.6 (0.00-5.0) % Basophils % 0.2 (0.0-0.4) % Absolute Granulocytes 2.65 (1.4-6.9) Basophils # 0.01 (0-0.4) Sodium (137-145) mmol/L Potassium (3.5-5.1) mmol/L Chloride (98-107) mmol/L Carbon Dioxide (22-30) mmol/L Anion Gap (5-15) MEQ/L BUN (7-17) mg/dL Creatinine (0.52-1.04) mg/dL Estimated GFR ML/MIN Glucose (74-106) mg/dL Calcium (8.4-10.2) mg/dL Total Bilirubin (0.2-1.3) mg/dL AST (14-36) U/L ALT (0-35) U/L Alkaline Phosphatase (38-126) U/L Troponin I (0.000-0.034) ng/mL Serum Total Protein (6.3-8.2) g/dL Albumin (3.5-5.0) g/dL Amylase (30-110) U/L Lipase (23-300) U/L Urine Color (YELLOW) Urine Appearance (CLEAR) Urine pH (5-6) Ur Specific [place] (1.005-1.025) Urine Protein (Negative) Urine Ketones (NEGATIVE) Urine Blood (0-5) Jignesh/ul Urine Nitrite (NEGATIVE) Urine Bilirubin (NEGATIVE) Urine Urobilinogen (0-1) mg/dL Ur Leukocyte Esterase (NEGATIVE) Urine WBC (Auto) (0-5) /HPF Urine RBC (Auto) (0-2) /HPF U Epithel Cells (Auto) (FEW) /HPF Urine Bacteria (Auto) (NEGATIVE) /HPF U Non-Squamous Epi Cells (FEW) /HPF Unidentified Crystals (NEGATIVE) /HPF Urine Mucus (Auto) (NEGATIVE) /HPF Ur Yeast w Hyphae (NEGATIVE) /HPF Urine Yeast (Budding) (NEGATIVE) /HPF Urine Culture Reflexed (NO) Urine Glucose (NEGATIVE) mg/dL - Progress Progress: improved Progress Note: 12/16/18 12:05 Pt did get IVF, and labs were taken. All labs were normal, including kidney function. UA showed elevated Leuk esterase and Ceftriaxone IV was give. I did order stool work up, but pt did not have any diarrhea episode or any BM while in the ER. Pt should f/u with her PCP if those symptoms recur. I will prescribe Omnicef for the pt to finish here ABX for UTI. Discussed with : Nicole Will see patient in: office Counseled pt/family regarding: need for follow-up - Departure Time of Disposition: 12:07 Departure Disposition: Home Clinical Impression: Vomiting and diarrhea Condition: Stable Critical Care Time: No Referrals: KAMAR BURROUGHS [Primary Care Provider] - Additional Instructions: F/U with PCP. Finish Omnicef for UTI. Drink plenty of fluids. Prescriptions: Cefdinir [Omnicef] 300 mg PO BID #10 capsule
[2018-12-16 12:16] VITALS: BP 95/65; PULSE 83
== END 2018-12-16 12:29 | disposition home or self-care (01) ==
LOC: ED 07:50
DX: R11.10 Vomiting, unspecified (principal); R19.7 Diarrhea, unspecified; Z79.899 Other long term (current) drug therapy
CPT/HCPCS: 36000; 36415; 80053; 81001; 82150; 83690; 84484; 85025; 87086; 93005; 96360; 96365; 96374; 99284; J0696; A9270-GY

== ENCOUNTER 2019-10-26 12:30 | Observation (INO) | payer OTHER ==
--- NOTE | 2019-10-26 12:42 | ERPHSYRPT ---
- History of Present Illness Time Seen by Provider: 10/26/19 12:42 Source: patient Exam Limitations: no limitations Physician History: The patient is a 48-year-old female with a past medical history significant for anxiety and hypothyroidism presents with a chief complaint of chest pain. Mendes there is experiencing intermittent chest pain over the past couple weeks and was seen by her primary care provider last week and had an outpatient cardiac stress test which showed some possible ST depression and she subsequently is scheduled to see cardiology in the near future to have a flexor scan. She reports that her chest pain started 2 days ago has been constant since that time. She describes her pain as a "tenderness" located to the left anterior aspect of her chest it is nonradiating constant and she endorses having some shortness of breath with this pain. She denies nausea, vomiting, fever, chills, cough and reportedly has been taking aspirin daily in addition to CoEnzyme 10 for her symptoms with no relief. the pain increases with palpation of her anterior chest wall but is not pleuritic. She denies history of PE, DVT and has had no recent surgeries or immobilization. She denies smoking history, cardiac disease in her family in a young age including mother father, hypertension, hyperlipidemia and diabetes mellitus. Allergies/Adverse Reactions: Iodinated Contrast Media [Iodinated Contrast Media - IV Dye] Allergy (Mild, Verified 10/26/19 12:45) Itching sulfamethoxazole [From Bactrim] Adverse Reaction (Verified 10/26/19 12:45) abd pain trimethoprim [From Bactrim] Adverse Reaction (Verified 10/26/19 12:45) abd pain Home Medications: Clonazepam 0.5 mg [Klonopin 0.5 MG] 0.5 mg PO DAILY PRN 12/02/18 [History] Levothyroxine Sodium 1 tab PO DAILY 12/02/18 [History] Ergocalciferol (Vitamin D2) [Vitamin D] 1 cap PO WEEKLY 10/26/19 [History] PARoxetine HCl [Paroxetine HCl] 10 mg PO DAILY 10/26/19 [History] Hx Tetanus, Diphtheria Vaccination/Date Given: No Hx Influenza Vaccination/Date Given: No Hx Pneumococcal Vaccination/Date Given: No - Review of Systems Constitutional: No Fever, No Chills Eyes: No Symptoms Ears, Nose, & Throat: No Symptoms Respiratory: No Symptoms, Dyspnea, No Cough, No Cyanosis, No Dyspnea on Exertion (HSU) Cardiac: No Chest Pain, No Edema, No Palpitations, No Syncope, No Orthopnea Abdominal/Gastrointestinal: No Abdominal Pain, No Nausea, No Vomiting Genitourinary Symptoms: No Symptoms Musculoskeletal: No Symptoms Skin: No Symptoms Neurological: No Symptoms Psychological: No Symptoms Hematologic/Lymphatic: No Symptoms Immunological/Allergic: No Symptoms All Other Systems: Reviewed and Negative - Past Medical History Pertinent Past Medical History: Yes Neurological History: No Pertinent History ENT History: No Pertinent History Cardiac History: No Pertinent History Respiratory History: No Pertinent History Endocrine Medical History: No Pertinent History Musculoskeletal History: No Pertinent History GI Medical History: No Pertinent History History: No Pertinent History Psycho-Social History: No Pertinent History Female Reproductive Disorders: No Pertinent History Other Medical History: thyroid problems - Past Surgical History Past Surgical History: No Neuro Surgical History: No Pertinent History Cardiac: No Pertinent History Respiratory: No Pertinent History Gastrointestinal: No Pertinent History Genitourinary: No Pertinent History Musculoskeletal: No Pertinent History Female Surgical History: Other Other Surgical History: D&C August 2013 - Social History Smoking Status: Never smoker Exposure to second hand smoke: No Drug Use: none Patient Lives Alone: No - Nursing Vital Signs Nursing Vital Signs: Initial Vital Signs Temperature 97.8 F 10/26/19 12:32 Pulse Rate 73 10/26/19 12:32 Respiratory Rate 11 L 10/26/19 12:32 Blood Pressure 111/72 10/26/19 12:32 O2 Sat by Pulse Oximetry 98 10/26/19 12:32 Pain Scale Pain Intensity 4 - Physical Exam General Appearance: no apparent distress Eye Exam: PERRL/EOMI Ears, Nose, Throat Exam: normal ENT inspection Neck Exam: normal inspection, supple Respiratory Exam: normal breath sounds, chest tenderness, lungs clear, airway intact, other (No evidence of zoster noted to the chest wall), No respiratory distress, No diminished breath sounds, No accessory muscle use, No prolonged expirations Cardiovascular Exam: regular rate/rhythm, normal heart sounds, normal peripheral pulses, capillary refill <2 sec, No murmur, No friction rub, No gallop, No tachycardia Gastrointestinal/Abdomen Exam: soft, No normal bowel sounds, No tenderness, No distention, No mass Pelvic Exam: not done Back Exam: normal inspection Extremity Exam: normal inspection Neurologic Exam: alert, oriented x 3, No cooperative Skin Exam: normal color, warm, dry, No rash, No petechiae, No jaundice SpO2 Interpretation: normal O2 Delivery: Room Air - Course Nursing assessment & vital signs reviewed: Yes EKG Interpreted by Me: RATE, NORMAL AXIS, NORMAL INTERVALS, Non-specific ST Changes - Radiology Exams Chest X-ray Interpretation: Interpreted by me, Reviewed by me, Negative Ordered Tests: Active Orders 24 hr Category Date Time Status Side Laster Tack STAT Care 10/26/19 12:46 Completed EKG-ER Only STAT Care 10/26/19 12:46 Completed IV Insertion STAT Care 10/26/19 12:[address] in Observation ROUTINE Care 10/26/19 13:54 Active Pulse Oximetry (ED) STAT Care 10/26/19 12:46 Completed CHEST 2 VIEWS (PA AND LAT) Stat Exams 10/26/19 12:46 Completed BMP AM.LAB Lab 10/27/19 04:33 Completed BMP Stat Lab 10/26/19 13:00 Completed CBC AM.LAB Lab 10/27/19 04:33 Completed CBC W DIFF Stat Lab 10/26/19 13:00 Completed NT PRO BNP Stat Lab 10/26/19 13:00 Completed TROPONIN Q3H Lab 10/26/19 13:00 Completed TROPONIN Q3H Lab 10/26/19 16:25 Completed TROPONIN Q3H Lab 10/26/19 19:12 Completed TROPONIN Q3H Lab 10/26/19 22:00 Completed TROPONIN Q3H Lab 10/27/19 01:12 Completed Medication Summary Generic Name Dose Route Start Last Admin Trade Name Freq PRN Reason Stop Dose Admin Hydrocodone Bitart/Acetaminophen 1 tab 10/26/19 21:44 Central 5/325 Mg PO 10/31/19 21:43 Q4H PRN PRN PAIN Clonazepam 0.5 mg 10/27/19 06:40 Klonopin 0.5 Mg PO 11/26/19 06:39 DAILY PRN PRN ANXIETY Ketorolac Tromethamine 30 mg 10/26/19 21:44 10/26/19 21:49 Toradol 30 Mg Injection IV 10/31/19 21:43 30 mg Q6H PRN PRN Administration PAIN Levothyroxine Sodium 25 mcg 10/27/19 07:00 Synthroid 25 Mcg PO 11/26/19 06:59 DAILY@0600 SATNAM Nitroglycerin 1 gm 10/26/19 22:00 10/26/19 21:35 Nitro-Bid 2% Ud Packets TOP 11/25/19 21:59 1 gm Q12HT SATNAM Administration Ondansetron HCl 4 mg 10/26/19 21:44 Zofran 4 Mg/2 Ml Vial IV 11/25/19 21:43 Q4H PRN PRN NAUSEA/VOMITING Pantoprazole Sodium 40 mg 10/27/19 22:00 10/26/19 21:51 Protonix 40mg Tablet PO 10/27/19 22:01 40 mg NOW ONE Administration Paroxetine HCl 10 mg 10/26/19 15:00 10/26/19 15:29 Paxil 20 Mg PO 11/25/19 14:59 10 mg DAILY SATNAM Administration Discontinued Medications Generic Name Dose Route Start Last Admin Trade Name Freq PRN Reason Stop Dose Admin Aspirin 324 mg 10/26/19 12:46 10/26/19 13:17 Baby Aspirin 81 Mg Chew PO 10/26/19 12:47 324 mg STAT ONE Administration Aspirin Confirm 10/26/19 13:15 Baby Aspirin 81 Mg Chew Administered 10/26/19 13:16 Dose 324 mg .ROUTE .STK-MED ONE Clonazepam 0.5 mg 10/26/19 15:00 10/26/19 15:30 Klonopin 0.5 Mg PO 11/25/19 14:59 0.5 mg DAILY SATNAM Administration Levothyroxine Sodium 25 mcg 10/26/19 15:00 10/26/19 15:29 Synthroid 25 Mcg PO 11/25/19 14:59 25 mcg QAM SATNAM Administration Nitroglycerin 0.4 mg 10/26/19 12:46 10/26/19 13:18 Nitrostat 0.4 Mg (Ed) SL 10/26/19 12:47 0.4 mg STAT ONE Administration Nitroglycerin Confirm 10/26/19 13:15 Nitrostat 0.4 Mg (Ed) Administered 10/26/19 13:16 Dose 0.4 mg SL .STK-MED ONE Pantoprazole Sodium Confirm 10/26/19 21:48 Protonix 40mg Tablet Administered 10/26/19 21:49 Dose 40 mg .ROUTE .STK-MED ONE Lab/Rad Data: Laboratory Result Diagrams 10/26/19 13:00 10/26/19 13:00 Laboratory Results 10/26/19 10/26/19 10/26/19 Range/Units 13:00 13:00 13:00 WBC 4.1 (4.0-10.5) K/mm3 RBC 4.34 (4.1-5.4) M/mm3 Hgb 13.9 (12.0-16.0) gm/dl Hct 41.2 (35-47) % MCV 94.9 (78-100) fl MCH 32.0 (26-32) pg MCHC 33.7 (32-36) g/dl RDW 12.5 (11.5-14.0) % Plt Count 143 L (150-450) K/mm3 MPV 9.9 (7.5-11.0) fl Gran % 62.9 (36.0-66.0) % Eos # (Auto) 0.04 (0-0.5) Absolute Lymphs (auto) 1.04 (1.0-4.6) Absolute Monos (auto) 0.43 (0.0-1.3) Lymphocytes % 25.4 (24.0-44.0) % Monocytes % 10.5 (0.0-12.0) % Eosinophils % 1.0 (0.00-5.0) % Basophils % 0.2 (0.0-0.4) % Absolute Granulocytes 2.57 (1.4-6.9) Basophils # 0.01 (0-0.4) Sodium 139 (137-145) mmol/L Potassium 3.7 (3.5-5.1) mmol/L Chloride 105 (98-107) mmol/L Carbon Dioxide 26 (22-30) mmol/L Anion Gap 12.0 (5-15) MEQ/L BUN 15 (7-17) mg/dL Creatinine 0.60 (0.52-1.04) mg/dL Estimated GFR > 60.0 ML/MIN Glucose 103 (74-106) mg/dL Calcium 9.3 (8.4-10.2) mg/dL Troponin I 0.016 (0.000-0.034) ng/mL NT-Pro-B Natriuret Pep 81.9 (0-450) pg/mL - Progress Progress: improved Progress Note: 10/26/19 14:14 The patient endorses she had some improvement in her chest pain with nitroglycerin. She was informed that should be admitted for observation to have serial troponins and if normal she will likely be discharged home tomorrow morning and have her Aissatou can schedule as an outpatient. The patient agreed with the admission in all questions were answered. Discussed with : Jeffry (Ok with admission to this facility for a chest pain r/o and if rules out then patient can be discharged for a Lexiscan) Will see patient in: hospital (observation) Counseled pt/family regarding: lab results, diagnosis, rad results - Departure Departure Disposition: Observation Clinical Impression: Chest pain Condition: Stable Critical Care Time: No
[2019-10-26] MEDS ORDERED: Nitrostat 0.4 MG (ED) SL ONE ×2 (12:46→13:15)
[2019-10-26] MEDS ORDERED: BABY ASPIRIN 81 MG CHEW PO ONE (12:46)
--- NOTE | 2019-10-26 13:03 | XRAY ---
Indication: Chest pain. Comparison: September 06, 2018. PA/lateral chest again demonstrates normal heart, lungs, and bony thorax.
[2019-10-26 13:09] LABS: Absolute Neutrophil Ct (ANC) 2.57 (1.4-6.9); BASOPHIL % 0.2 % (0.0-0.4); Basophil (Absolute #) 0.01 (0-0.4); Eosinophil (Absolute #) 0.04 (0-0.5); Hematocrit 41.2 % (35-47); Hemoglobin 13.9 gm/dl (12.0-16.0); Lymphocyte (Absolute #) 1.04 (1.0-4.6); Lymphocytes % 25.4 % (24.0-44.0); Mean Cell Volume 94.9 fl (78-100); Mean Corpuscular Hgb Concent. 33.7 g/dl (32-36); Mean Platelet Volume 9.9 fl (7.5-11.0); Monocyte (Absolute #) 0.43 (0.0-1.3); Monocytes % 10.5 % (0.0-12.0); Neutrophil % 62.9 % (36.0-66.0); Platelet Count 143 K/mm3 (150-450); Red Blood Count 4.34 M/mm3 (4.1-5.4); Red Cell Distribution Width 12.5 % (11.5-14.0); White Blood Count 4.1 K/mm3 (4.0-10.5)
[2019-10-26] MEDS ORDERED: BABY ASPIRIN 81 MG CHEW ONE (13:15)
[2019-10-26 13:23] LABS: BLOOD UREA NITROGEN 15 mg/dL (7-17); CHLORIDE 105 mmol/L (98-107); Calcium 9.3 mg/dL (8.4-10.2); Carbon Dioxide 26 mmol/L (22-30); Glucose 103 mg/dL (74-106); NT PRO BNP 81.9 pg/mL (0-450); Potassium 3.7 mmol/L (3.5-5.1); SODIUM 139 mmol/L (137-145)
[2019-10-26] MEDS ORDERED: SYNTHROID 25 MCG PO SCH (15:00)
[2019-10-26] MEDS ORDERED: Klonopin 0.5 MG PO SCH (15:00)
[2019-10-26] MEDS: Paxil 20 MG PO SCH (15:29)
[2019-10-26] MEDS: NITRO-BID 2% UD PACKETS TOP SCH (21:35)
[2019-10-26] MEDS ORDERED: Zofran 4 MG/2 ML VIAL IV PRN (21:44)
[2019-10-26] MEDS ORDERED: NORCO 5/325 MG PO PRN (21:44)
[2019-10-26] MEDS ORDERED: Protonix 40MG Tablet ONE (21:48)
[2019-10-26] MEDS: TORAdol 30 mg Injection IV PRN (21:49)
[2019-10-27 04:51] LABS: Hematocrit 38.3 % (35-47); Hemoglobin 12.8 gm/dl (12.0-16.0); Mean Cell Volume 94.8 fl (78-100); Mean Corpuscular Hemoglobin 31.7 pg (26-32); Mean Corpuscular Hgb Concent. 33.4 g/dl (32-36); Mean Platelet Volume 10.1 fl (7.5-11.0); Platelet Count 137 K/mm3 (150-450); Red Blood Count 4.04 M/mm3 (4.1-5.4); Red Cell Distribution Width 12.4 % (11.5-14.0); White Blood Count 4.2 K/mm3 (4.0-10.5)
[2019-10-27 05:12] LABS: ANION GAP 9.9 MEQ/L (5-15); BLOOD UREA NITROGEN 20 mg/dL (7-17); CHLORIDE 101 mmol/L (98-107); Calcium 8.8 mg/dL (8.4-10.2); Carbon Dioxide 28 mmol/L (22-30); Creatinine 1 0.62 mg/dL (0.52-1.04); Glucose 90 mg/dL (74-106); SODIUM 135 mmol/L (137-145)
[2019-10-27] MEDS ORDERED: Klonopin 0.5 MG PO PRN (06:40)
[2019-10-27] MEDS: SYNTHROID 25 MCG PO SCH (07:31)
[2019-10-27] MEDS: TORAdol 30 mg Injection IV PRN (07:40)
--- NOTE | 2019-10-27 08:39 | PCM.SSS ---
History of Present Illness - Chief Complaint Chief Complaint: chest pain History of Present Illness: is a 48 year old female pt of mine from [facility] with anxiety and hypothyroidism who was admitted through ER with chest pain. She has been having centralized chest pressure and tenderness, 4/10, for the past 2 weeks. Also c/o some SOB and some rapid heart rate. Was seen in my office Oct 15 and was c/o chest pain at that time. Exercise stress test with scattered ST depressions; cardiology f/u is scheduled. Troponins in the ER and med surg neg x 5, although the first troponin was detectable (still in nl range). She was feeling somewhat better with nitro, then yesterday evening the pain worsened. She was given a PPI an anti-inflammatory, and some pain meds were ordered prn at that time. This morning she is still having some central chest pain, better with deep breaths. Her CBC showed slightly depressed platelets, 137 this morning (143 yesterday; in Nov 2018 were 109, but in December 2018 154). chemistry is unremarkable. CXR nonacute. Pt c/o some epigastric pain that is ongoing, as well as posterior neck pain. Will check d-dimer and CKP now. Echocardiogram today. EGD outpatient. Possible hematology consult particularly if no findings elsewhere. Likely home today after testing completed. - Review of Systems Respiratory: Short Of Breath Cardiac: Chest Pain, Palpitations Abdominal/Gastrointestinal: Abdominal Pain Musculoskeletal: Arthralgias Neurological: Dizziness (lightheaded intermittently. ) Psychological: Anxiety All Other Systems: Reviewed and Negative Medications & Allergies Home Medications: Home Medication List Clonazepam 0.5 mg [Klonopin 0.5 MG] 0.5 mg PO DAILY PRN 12/02/18 [History Confirmed 10/26/19] Levothyroxine Sodium 1 tab PO DAILY 12/02/18 [History Confirmed 10/26/19] Ergocalciferol (Vitamin D2) [Vitamin D] 1 cap PO WEEKLY 10/26/19 [History Confirmed 10/26/19] PARoxetine HCl [Paroxetine HCl] 10 mg PO DAILY 10/26/19 [History Confirmed 10/26] Allergies/Adverse Reactions: Allergies Allergy/AdvReac Type Severity Reaction Status Date / Time Iodinated Contrast Media Allergy Mild Itching Verified 10/26/19 12:45 [Iodinated Contrast Media - IV Dye] sulfamethoxazole AdvReac abd pain Verified 10/26/19 12:45 [From Bactrim] trimethoprim [From Bactrim] AdvReac abd pain Verified 10/26/19 12:45 - Past Medical History Past Medical History: Yes Neurological History: No Pertinent History ENT History: No Pertinent History Cardiac History: No Pertinent History Respiratory History: No Pertinent History Endocrine Medical History: No Pertinent History Musculoskelatal History: No Pertinent History GI Medical History: No Pertinent History History: No Pertinent History Pyscho-Social History: No Pertinent History Reproductive Disorders: No Pertinent History Comment: thyroid problems - Female History Are you now?: No - Past Surgical History Past Surgical History: No Neuro Surgical History: No Pertinent History Cardiac History: No Pertinent History Respiratory Surgery: No Pertinent History GI Surgical History: No Pertinent History Genitourinary Surgical Hx: No Pertinent History Musculskeletal Surgical Hx: No Pertinent History Female Surgical History: Other Other Surgical History: D&C August 2013 - Social History Smoking Status: Never smoker Exposure to second hand smoke: No Alcohol: None Drug Use: none - Physical Exam Vital Signs: Vital Signs - 24 hr Temp Pulse Pulse Resp BP Pulse Ox 10/27/19 04:00 97.4 F 63 16 91/52 96 10/26/19 23:52 98.3 F 70 14 94/59 96 10/26/19 18:39 98.9 F 72 12 86/53 98 10/26/19 16:16 97.8 F 10/26/19 15:18 97.5 F 66 18 105/68 98 10/26/19 14:56 97.6 F 65 18 105/68 10/26/19 14:41 97.6 F 65 18 105/59 98 10/26/19 14:39 97.6 F 65 18 105/59 98 10/26/19 14:05 74 16 102/70 99 10/26/19 13:32 66 7 L 110/76 97 10/26/19 12:32 97.8 F 84 73 11 L 111/72 98 General Appearance: no apparent distress, alert Neurologic Exam: oriented x 3, cooperative Eye Exam: eyes nml inspection Ears, Nose, Throat Exam: moist mucous membranes Neck Exam: normal inspection, non-tender, No lymphadenopathy Respiratory Exam: normal breath sounds, lungs clear, No crackles/rales, No rhonchi, No wheezing Cardiovascular Exam: regular rate/rhythm, normal heart sounds, No murmur Gastrointestinal/Abdomen Exam: soft, normal bowel sounds, tenderness (epigastrum ) Back Exam: normal inspection, No rash Extremity Exam: normal inspection, swelling (trace edema bilat) Skin Exam: normal color, warm, dry, No rash Results - Labs Lab/Micro Results: Lab Results-Last 24 Hours 10/26/19 10/26/19 10/26/19 Range/Units 13:00 13:00 13:00 WBC 4.1 (4.0-10.5) K/mm3 RBC 4.34 (4.1-5.4) M/mm3 Hgb 13.9 (12.0-16.0) gm/dl Hct 41.2 (35-47) % MCV 94.9 (78-100) fl MCH 32.0 (26-32) pg MCHC 33.7 (32-36) g/dl RDW 12.5 (11.5-14.0) % Plt Count 143 L (150-450) K/mm3 MPV 9.9 (7.5-11.0) fl Gran % 62.9 (36.0-66.0) % Eos # (Auto) 0.04 (0-0.5) Absolute Lymphs (auto) 1.04 (1.0-4.6) Absolute Monos (auto) 0.43 (0.0-1.3) Lymphocytes % 25.4 (24.0-44.0) % Monocytes % 10.5 (0.0-12.0) % Eosinophils % 1.0 (0.00-5.0) % Basophils % 0.2 (0.0-0.4) % Absolute Granulocytes 2.57 (1.4-6.9) Basophils # 0.01 (0-0.4) Sodium 139 (137-145) mmol/L Potassium 3.7 (3.5-5.1) mmol/L Chloride 105 (98-107) mmol/L Carbon Dioxide 26 (22-30) mmol/L Anion Gap 12.0 (5-15) MEQ/L BUN 15 (7-17) mg/dL Creatinine 0.60 (0.52-1.04) mg/dL Estimated GFR > 60.0 ML/MIN Glucose 103 (74-106) mg/dL Calcium 9.3 (8.4-10.2) mg/dL Troponin I 0.016 (0.000-0.034) ng/mL NT-Pro-B Natriuret Pep 81.9 (0-450) pg/mL 10/26/19 10/26/19 10/26/19 Range/Units 16:25 19:12 22:00 WBC (4.0-10.5) K/mm3 RBC (4.1-5.4) M/mm3 Hgb (12.0-16.0) gm/dl Hct (35-47) % MCV (78-100) fl MCH (26-32) pg MCHC (32-36) g/dl RDW (11.5-14.0) % Plt Count (150-450) K/mm3 MPV (7.5-11.0) fl Gran % (36.0-66.0) % Eos # (Auto) (0-0.5) Absolute Lymphs (auto) (1.0-4.6) Absolute Monos (auto) (0.0-1.3) Lymphocytes % (24.0-44.0) % Monocytes % (0.0-12.0) % Eosinophils % (0.00-5.0) % Basophils % (0.0-0.4) % Absolute Granulocytes (1.4-6.9) Basophils # (0-0.4) Sodium (137-145) mmol/L Potassium (3.5-5.1) mmol/L Chloride (98-107) mmol/L Carbon Dioxide (22-30) mmol/L Anion Gap (5-15) MEQ/L BUN (7-17) mg/dL Creatinine (0.52-1.04) mg/dL Estimated GFR ML/MIN Glucose (74-106) mg/dL Calcium (8.4-10.2) mg/dL Troponin I < 0.012 < 0.012 < 0.012 (0.000-0.034) ng/mL NT-Pro-B Natriuret Pep (0-450) pg/mL 10/27/19 10/27/19 10/27/19 Range/Units 01:12 04:33 04:33 WBC 4.2 (4.0-10.5) K/mm3 RBC 4.04 L (4.1-5.4) M/mm3 Hgb 12.8 (12.0-16.0) gm/dl Hct 38.3 (35-47) % MCV 94.8 (78-100) fl MCH 31.7 (26-32) pg MCHC 33.4 (32-36) g/dl RDW 12.4 (11.5-14.0) % Plt Count 137 L (150-450) K/mm3 MPV 10.1 (7.5-11.0) fl Gran % (36.0-66.0) % Eos # (Auto) (0-0.5) Absolute Lymphs (auto) (1.0-4.6) Absolute Monos (auto) (0.0-1.3) Lymphocytes % (24.0-44.0) % Monocytes % (0.0-12.0) % Eosinophils % (0.00-5.0) % Basophils % (0.0-0.4) % Absolute Granulocytes (1.4-6.9) Basophils # (0-0.4) Sodium 135 L (137-145) mmol/L Potassium 4.0 (3.5-5.1) mmol/L Chloride 101 (98-107) mmol/L Carbon Dioxide 28 (22-30) mmol/L Anion Gap 9.9 (5-15) MEQ/L BUN 20 H (7-17) mg/dL Creatinine 0.62 (0.52-1.04) mg/dL Estimated GFR > 60.0 ML/MIN Glucose 90 (74-106) mg/dL Calcium 8.8 (8.4-10.2) mg/dL Troponin I < 0.012 (0.000-0.034) ng/mL NT-Pro-B Natriuret Pep (0-450) pg/mL - Radiology Impressions Radiology Exams & Impressions: Radiology Procedures Category Date Time Status CHEST 2 VIEWS (PA AND LAT) Stat Exams 10/26/19 12:46 Completed ECHO W/2D AND DOPPLER [US] Routine Exams 10/27/19 Ordered - Other Procedures and Tests Respiratory Therapy 10/27/19 08:32 STRESS TEST [Schedule Outpt Stress Test] Routine Assessment/Plan (1) Chest pain Current Visit: Yes Status: Acute Qualifiers: Chest pain type: unspecified Qualified Code(s): R07.9 - Chest pain, unspecified Assessment & Plan: D-dimer is elevated - would like to do CT chest, checking on pt's contrast allergy. Start lovenox. Otherwise may be musculoskeletal. checking echo as well. Code(s): R07.9 - CHEST PAIN, UNSPECIFIED (2) Epigastric abdominal pain Current Visit: Yes Status: Acute Assessment & Plan: will schedule op EGD. Code(s): R10.13 - EPIGASTRIC PAIN Hospital Summary - Hospital Course Hospital Course: is a 48 year old female pt of mine from [facility] with anxiety and hypothyroidism who was admitted through ER with chest pain. She has been having centralized chest pressure and tenderness, 4/10, for the past 2 weeks. Also c/o some SOB and some rapid heart rate. Was seen in my office Oct 15 and was c/o chest pain at that time. Exercise stress test with scattered ST depressions; cardiology f/u is scheduled. Troponins in the ER and med surg neg x 5, although the first troponin was detectable (still in nl range). She was feeling somewhat better with nitro, then yesterday evening the pain worsened. She was given a PPI an anti-inflammatory, and some pain meds were ordered prn at that time. This morning she is still having some central chest pain, better with deep breaths. Her CBC showed slightly depressed platelets, 137 this morning (143 yesterday; in Nov 2018 were 109, but in December 2018 154). chemistry is unremarkable. CXR nonacute. Pt c/o some epigastric pain that is ongoing, as well as posterior neck pain. Will check d-dimer and CKP now. Echocardiogram today. EGD outpatient. Possible hematology consult particularly if no findings elsewhere. Likely home today after testing completed. - Vitals & Intake/Output Vital Signs: Vital Signs Temperature 97.4 F 10/27/19 04:00 Pulse Rate 63 10/27/19 04:00 Respiratory Rate 16 10/27/19 04:00 Blood Pressure 91/52 10/27/19 04:00 O2 Sat by Pulse Oximetry 96 10/27/19 04:00 Intake & Output: Intake & Output 10/24/19 10/25/19 10/26/19 10/27/19 11:59 11:59 11:59 11:59 Intake Total 1920 Output Total 200 Balance 1720 Weight 65.7 kg - Lab Result Diagrams: 10/27/19 04:33 10/27/19 04:33 Lab Results-Last 24 Hrs: Lab Results-Last 24 Hours 10/26/19 10/26/19 10/26/19 Range/Units 13:00 13:00 13:00 WBC 4.1 (4.0-10.5) K/mm3 RBC 4.34 (4.1-5.4) M/mm3 Hgb 13.9 (12.0-16.0) gm/dl Hct 41.2 (35-47) % MCV 94.9 (78-100) fl MCH 32.0 (26-32) pg MCHC 33.7 (32-36) g/dl RDW 12.5 (11.5-14.0) % Plt Count 143 L (150-450) K/mm3 MPV 9.9 (7.5-11.0) fl Gran % 62.9 (36.0-66.0) % Eos # (Auto) 0.04 (0-0.5) Absolute Lymphs (auto) 1.04 (1.0-4.6) Absolute Monos (auto) 0.43 (0.0-1.3) Lymphocytes % 25.4 (24.0-44.0) % Monocytes % 10.5 (0.0-12.0) % Eosinophils % 1.0 (0.00-5.0) % Basophils % 0.2 (0.0-0.4) % Absolute Granulocytes 2.57 (1.4-6.9) Basophils # 0.01 (0-0.4) Sodium 139 (137-145) mmol/L Potassium 3.7 (3.5-5.1) mmol/L Chloride 105 (98-107) mmol/L Carbon Dioxide 26 (22-30) mmol/L Anion Gap 12.0 (5-15) MEQ/L BUN 15 (7-17) mg/dL Creatinine 0.60 (0.52-1.04) mg/dL Estimated GFR > 60.0 ML/MIN Glucose 103 (74-106) mg/dL Calcium 9.3 (8.4-10.2) mg/dL Troponin I 0.016 (0.000-0.034) ng/mL NT-Pro-B Natriuret Pep 81.9 (0-450) pg/mL 10/26/19 10/26/19 10/26/19 Range/Units 16:25 19:12 22:00 WBC (4.0-10.5) K/mm3 RBC (4.1-5.4) M/mm3 Hgb (12.0-16.0) gm/dl Hct (35-47) % MCV (78-100) fl MCH (26-32) pg MCHC (32-36) g/dl RDW (11.5-14.0) % Plt Count (150-450) K/mm3 MPV (7.5-11.0) fl Gran % (36.0-66.0) % Eos # (Auto) (0-0.5) Absolute Lymphs (auto) (1.0-4.6) Absolute Monos (auto) (0.0-1.3) Lymphocytes % (24.0-44.0) % Monocytes % (0.0-12.0) % Eosinophils % (0.00-5.0) % Basophils % (0.0-0.4) % Absolute Granulocytes (1.4-6.9) Basophils # (0-0.4) Sodium (137-145) mmol/L Potassium (3.5-5.1) mmol/L Chloride (98-107) mmol/L Carbon Dioxide (22-30) mmol/L Anion Gap (5-15) MEQ/L BUN (7-17) mg/dL Creatinine (0.52-1.04) mg/dL Estimated GFR ML/MIN Glucose (74-106) mg/dL Calcium (8.4-10.2) mg/dL Troponin I < 0.012 < 0.012 < 0.012 (0.000-0.034) ng/mL NT-Pro-B Natriuret Pep (0-450) pg/mL 10/27/19 10/27/19 10/27/19 Range/Units 01:12 04:33 04:33 WBC 4.2 (4.0-10.5) K/mm3 RBC 4.04 L (4.1-5.4) M/mm3 Hgb 12.8 (12.0-16.0) gm/dl Hct 38.3 (35-47) % MCV 94.8 (78-100) fl MCH 31.7 (26-32) pg MCHC 33.4 (32-36) g/dl RDW 12.4 (11.5-14.0) % Plt Count 137 L (150-450) K/mm3 MPV 10.1 (7.5-11.0) fl Gran % (36.0-66.0) % Eos # (Auto) (0-0.5) Absolute Lymphs (auto) (1.0-4.6) Absolute Monos (auto) (0.0-1.3) Lymphocytes % (24.0-44.0) % Monocytes % (0.0-12.0) % Eosinophils % (0.00-5.0) % Basophils % (0.0-0.4) % Absolute Granulocytes (1.4-6.9) Basophils # (0-0.4) Sodium 135 L (137-145) mmol/L Potassium 4.0 (3.5-5.1) mmol/L Chloride 101 (98-107) mmol/L Carbon Dioxide 28 (22-30) mmol/L Anion Gap 9.9 (5-15) MEQ/L BUN 20 H (7-17) mg/dL Creatinine 0.62 (0.52-1.04) mg/dL Estimated GFR > 60.0 ML/MIN Glucose 90 (74-106) mg/dL Calcium 8.8 (8.4-10.2) mg/dL Troponin I < 0.012 (0.000-0.034) ng/mL NT-Pro-B Natriuret Pep (0-450) pg/mL - Radiology Exams Ordered Rad Exams-Entire Visit: Radiology Procedures Category Date Time Status CHEST 2 VIEWS (PA AND LAT) Stat Exams 10/26/19 12:46 Completed ECHO W/2D AND DOPPLER [US] Routine Exams 10/27/19 Ordered - Procedures and Test Procedures and Tests throughout Hospitalization: Therapy Orders & Screens 10/27/19 08:32 STRESS TEST [Schedule Outpt Stress Test] Routine Comment: Diagnosis: chest pain Schedule Outpt Stress Test: Cardiolyte Stress Test Cardiolite Stress Test: Cardiolite Treadmill - Discharge Disposition: Home, Self-Care Condition: Stable Prescriptions: No Action Clonazepam 0.5 mg [Klonopin 0.5 MG] 0.5 mg PO DAILY PRN PRN Reason: Anxiety Levothyroxine Sodium 1 tab PO DAILY PARoxetine HCl [Paroxetine HCl] 10 mg PO DAILY Ergocalciferol (Vitamin D2) [Vitamin D] 1 cap PO WEEKLY Follow up with: KAMAR BURROUGHS [Primary Care Provider] - 1 Week
[2019-10-27] MEDS ORDERED: BENADRYL 50 MG/ML IV ONE (09:06)
[2019-10-27] MEDS ORDERED: solu-MEDROL 125 MG IV ONE (09:06)
[2019-10-27] MEDS: Paxil 20 MG PO SCH (09:31)
[2019-10-27] MEDS: NITRO-BID 2% UD PACKETS TOP SCH ×2 (09:31→21:56)
[2019-10-27] MEDS ORDERED: Ativan 1 MG PO ONE (12:55)
[2019-10-27] MEDS: Norco 10/325 MG Tablet PO PRN (13:55)
--- NOTE | 2019-10-27 15:28 | XRAY ---
Indication: Chest pain/tightness. Elevated d-dimer. Multiple contiguous axial images obtained through the chest using 80 cc Isovue 370 contrast and PE protocol. Comparison: None There is good opacification of the pulmonary arteries to include the lobar and segmental branches. No filling defect or pulmonary embolus. Heart is not enlarged. Aorta is normal in course and caliber. No pathologic mediastinal/hilar lymphadenopathy. Lungs demonstrates minimal bilateral dependent atelectasis, minimal biapical fibrosis/scarring, and left upper lobe calcified granulomas. No suspicious pulmonary mass, infiltrate, or effusion. Bony thorax intact. Limited upper abdomen is unremarkable. Impression: 1. Negative pulmonary embolus. No acute cardiopulmonary abnormalities. 2. Incidental minimal fibrosis/scarring and evidence for old granulomatous disease.
[2019-10-27] MEDS ORDERED: Sodium Chloride 0.9% 10 ML FLUSH Syringe IV PRN (17:00)
[2019-10-27] MEDS: Sodium Chloride 0.9% 10 ML FLUSH Syringe IV SCH (21:55)
[2019-10-27] MEDS ORDERED: Protonix 40MG Tablet PO ONE (22:00)
[2019-10-28 04:51] VITALS: O2SAT 96
[2019-10-28] MEDS: Sodium Chloride 0.9% 10 ML FLUSH Syringe IV SCH (04:53)
[2019-10-28] MEDS: TORAdol 30 mg Injection IV PRN (04:53)
[2019-10-28] MEDS: SYNTHROID 25 MCG PO SCH (05:00)
[2019-10-28 07:37] VITALS: BP 95/53; PULSE 62
[2019-10-28] MEDS: Norco 10/325 MG Tablet PO PRN (08:13)
--- NOTE | 2019-10-28 09:22 | PCM.DS ---
Discharge Summary Date of Admission: 10/26/19 14:28 Admitting Physician: KAMAR BURROUGHS Primary Care Provider: KAMAR BURROUGHS Allergies Allergies Iodinated Contrast Media [Iodinated Contrast Media - IV Dye] Allergy (Mild, Verified 10/26/19 12:45) Itching sulfamethoxazole [From Bactrim] Adverse Reaction (Verified 10/26/19 12:45) abd pain trimethoprim [From Bactrim] Adverse Reaction (Verified 10/26/19 12:45) abd pain Hospital Summary - Hospital Course Hospital Course: is a 48 year old female pt of mine from [facility] with anxiety and hypothyroidism who was admitted through ER with chest pain. She has been having centralized chest pressure and tenderness, 4/10, for the past 2 weeks. Also c/o some SOB and some rapid heart rate. Was seen in my office Oct 15 and was c/o chest pain at that time. Exercise stress test with scattered ST depressions; cardiology f/u is scheduled. Troponins in the ER and med surg neg x 5, although the first troponin was detectable (still in nl range). She has been feeling somewhat better with nitroalthough she then has a headache. Her chest pressure is improved this morning. Her CBC showed slightly depressed platelets, 137 this morning (143 yesterday; in Nov 2018 were 109, but in December 2018 154). chemistry is unremarkable. CXR nonacute. Pt c/o some epigastric pain that is ongoing, as well as neck pain. D-dimer was elevated but CT chest was negative for PE. Echocardiogram pending. Will get cardiolyte stress test and EGD outpatient. Will see DR. Kimball in follow up (my office to make the appointment) and will see me in 1 wk. - Vitals & Intake/Output Vital Signs: Vital Signs Temperature 97.3 F 10/28/19 07:36 Pulse Rate 62 10/28/19 07:36 Respiratory Rate 14 10/28/19 07:36 Blood Pressure 95/53 10/28/19 07:36 O2 Sat by Pulse Oximetry 96 10/28/19 07:36 Intake & Output: Intake & Output 10/25/19 10/26/19 10/27/19 10/28/19 11:59 11:59 11:59 11:59 Intake Total 2280 1120 Output Total 200 Balance 2080 1120 Weight 65.7 kg - Lab Result Diagrams: 10/27/19 04:33 10/27/19 04:33 Lab Results-Last 24 Hrs: Lab Results-Last 24 Hours 10/27/19 Range/Units 04:33 Creatine Kinase 21 L (30-135) U/L - Radiology Exams Ordered Rad Exams-Entire Visit: Radiology Procedures Category Date Time Status CHEST 2 VIEWS (PA AND LAT) Stat Exams 10/26/19 12:46 Completed CHEST WITH CONTRAST [CT] Stat Exams 10/27/19 08:53 Completed ECHO W/2D AND DOPPLER [US] Routine Exams 10/27/19 12:45 Taken - Procedures and Test Procedures and Tests throughout Hospitalization: Therapy Orders & Screens 10/27/19 08:32 STRESS TEST [Schedule Outpt Stress Test] Routine Comment: Diagnosis: chest pain Schedule Outpt Stress Test: Cardiolyte Stress Test Cardiolite Stress Test: Cardiolite Treadmill Discharge Exam General Appearance: no apparent distress, alert Neurologic Exam: oriented x 3, cooperative Eye Exam: eyes nml inspection Ears, Nose, Throat Exam: moist mucous membranes Neck Exam: normal inspection, non-tender, No lymphadenopathy Respiratory Exam: normal breath sounds, lungs clear, No crackles/rales, No rhonchi, No wheezing Cardiovascular Exam: regular rate/rhythm, normal heart sounds, No murmur Gastrointestinal/Abdomen Exam: soft, normal bowel sounds, No tenderness, No distention, No mass, No guarding, No rebound Back Exam: normal inspection, No rash Extremity Exam: normal inspection, No pedal edema, No swelling Skin Exam: normal color, warm, dry, No rash Final Diagnosis/Problem List - Final Discharge Diagnosis/Problem (1) Chest pain Current Visit: Yes Status: Acute Assessment & Plan: Unsure etiology; ruled out for TN. Getting EGD next weekend. Cardiolyte treadmill soon. F/u with Dr. Kimball. Anti-inflammatory without relief. Code(s): R07.9 - CHEST PAIN, UNSPECIFIED (2) Epigastric abdominal pain Current Visit: Yes Status: Acute Code(s): R10.13 - EPIGASTRIC PAIN - Discharge Disposition: Home, Self-Care Condition: Stable Prescriptions: Continue Clonazepam 0.5 mg [Klonopin 0.5 MG] 0.5 mg PO DAILY PRN PRN Reason: Anxiety Levothyroxine Sodium 1 tab PO DAILY PARoxetine HCl [Paroxetine HCl] 10 mg PO DAILY Ergocalciferol (Vitamin D2) [Vitamin D] 1 cap PO WEEKLY Follow up with: KAMAR BURROUGHS [Primary Care Provider] - 1 Week
[2019-10-28] MEDS: Paxil 20 MG PO SCH (09:44)
--- NOTE | 2019-10-29 14:51 | ECHO ---
DATE OF PROCEDURE: 10/27/2019 CLINICAL INFORMATION: Chest pain. The M-mode 2D, and Doppler echocardiogram including color flow Doppler shows the left ventricle is normal in size at 4.5 cm. No thrombus present. The septal wall thickness is normal at 0.9 cm. The left ventricular posterior wall thickness is normal at 0.8 cm. There is low normal left ventricular systolic function with an ejection fraction calculated at 53%. The right ventricle is grossly normal. The left atrium is not well visualized. The interatrial septum is not well visualized. The right atrium is not well visualized. The aortic valve opens well and is trileaflet. There is no aortic regurgitation. There is trace amount mitral regurgitation. There is mild tricuspid regurgitation. The right ventricular systolic pressure is normal at 15 mm of Mercury. The pulmonic valve is not well visualized. The aortic root is normal at 2.8 cm. There is no pericardial effusion present. IMPRESSION: 1) LOW NORMAL LEFT VENTRICULAR SYSTOLIC FUNCTION. 2) MILD TRICUSPID REGURGITATION. 3) NORMAL RIGHT VENTRICULAR SYSTOLIC PRESSURE.
== END 2019-10-28 11:05 | disposition home or self-care (01) ==
LOC: ED 12:30 → MED SURG 14:28
PROVIDERS: ADMIT Family Medicine; ATTEND Family Medicine
DX: R07.9 Chest pain, unspecified (principal); R42 Dizziness and giddiness; R10.13 Epigastric pain; R00.2 Palpitations; F41.9 Anxiety disorder, unspecified; E03.9 Hypothyroidism, unspecified; R51 Headache; R79.1 Abnormal coagulation profile; M54.2 Cervicalgia; R06.02 Shortness of breath; Z79.899 Other long term (current) drug therapy
CPT/HCPCS: 36000; 36415; 71046; 71260; 80048; 82550; 83880; 84484; 85025; 85027; 85379; 93005; 93041; 93306; 94760; 99285; G0378; J1200; J1885; J2405; J2930; A9270-GY

== ENCOUNTER 2019-11-04 06:13 | Day surgery (SDC) | payer OTHER ==
[2019-11-04] MEDS ORDERED: Lactated Ringers 1,000 ML IV ONE (06:16)
[2019-11-04] MEDS ORDERED: Lactated Ringers 1,000 ML IV SCH (06:30)
[2019-11-04] MEDS ORDERED: DIPRIVAN 200 MG/20 ML IV ONE (07:49)
[2019-11-04] MEDS ORDERED: Ketamine HCl 50 MG/ML ONE (07:49)
--- NOTE | 2019-11-04 10:00 | OP ---
SURGERY DATE/TIME: 11/04/2019804 PREOPERATIVE DIAGNOSIS: Epigastric abdominal pain. POSTOPERATIVE DIAGNOSIS: 1) Moderate gastritis. 2) Mild to moderate duodenitis. PROCEDURE: EGD. SURGEON: Kevin Loja M.D. ANESTHESIA: MAC by Arya Soto CRNA. ESTIMATED BLOOD LOSS: Minimal. SPECIMENS: Two cold forceps biopsies were taken from the gastric antrum for Helicobacter pylori testing. DESCRIPTION OF PROCEDURE: After informed written consent was obtained, the patient was taken to the endoscopy suite. She had a bite block inserted and underwent monitored anesthesia. The endoscope was inserted into the posterior oropharynx and under direct visualization the esophagus was easily traversed. There no obvious mucosal abnormalities or strictures present in the esophagus. The gastroesophageal junction likewise had a normal appearance. Upon entering the stomach there were moderate gastritis-type changes but not obvious ulceration or bleeding present in the gastric antrum. The pylorus was traversed and there were some mild to moderate duodenitis-type changes with no obvious bleeding or ulcerations present. Two cold forceps biopsies were taken from the gastric antrum and sent for Helicobacter pylori testing with minimal bleeding. The cardiac portion of the stomach revealed no obvious lesions or abnormalities. There was no appreciable hiatal hernia. Upon withdrawal the remainder of the mucosal structures were unremarkable. The scope was removed and the patient was transferred to the recovery room in good condition. I have advised avoidance of all NSAID's including aspirin at this time. I started her on Protonix 40 mg daily and will await testing for Helicobacter pylori. She will follow up in one week in the office.
[2019-11-04 11:12] VITALS: O2SAT 100
[2019-11-04 11:16] VITALS: BP 119/68; PULSE 63
== END 2019-11-04 09:45 | disposition home or self-care (01) ==
LOC: SDC 06:13
PROVIDERS: ATTEND Family Medicine
DX: K29.70 Gastritis, unspecified, without bleeding (principal); K29.80 Duodenitis without bleeding; K21.9 Gastro-esophageal reflux disease without esophagitis; E03.9 Hypothyroidism, unspecified; F41.9 Anxiety disorder, unspecified
CPT/HCPCS: 84703; 88305; J2704

== ENCOUNTER 2020-03-09 01:31 | Emergency (ER) | payer OTHER ==
[2020-03-09] MEDS ORDERED: TORAdol 30 mg Injection IV ONE (02:02)
[2020-03-09] MEDS ORDERED: Sodium Chloride 0.9% 1000 ML 1,000 ML IV STA (02:02)
[2020-03-09] MEDS ORDERED: TORAdol 30 mg Injection ONE (02:11)
[2020-03-09] MEDS ORDERED: Sodium Chloride 0.9% 1000 ML 1,000 ML ONE (02:11)
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
[2020-03-09 02:43] LABS: Absolute Neutrophil Ct (ANC) 5.05 (1.4-6.9); BASOPHIL % 0.2 % (0.0-0.4); Basophil (Absolute #) 0.01 (0-0.4); Eosinophil % 0.8 % (0.00-5.0); Eosinophil (Absolute #) 0.05 (0-0.5); Hematocrit 38.1 % (35-47); Lymphocyte (Absolute #) 0.84 (1.0-4.6); Mean Cell Volume 95.5 fl (78-100); Mean Corpuscular Hemoglobin 32.6 pg (26-32); Mean Corpuscular Hgb Concent. 34.1 g/dl (32-36); Mean Platelet Volume 9.4 fl (7.5-11.0); Monocyte (Absolute #) 0.51 (0.0-1.3); Monocytes % 7.9 % (0.0-12.0); Neutrophil % 78.1 % (36.0-66.0); Platelet Count 133 K/mm3 (150-450); Red Blood Count 3.99 M/mm3 (4.1-5.4); Red Cell Distribution Width 12.6 % (11.5-14.0); White Blood Count 6.5 K/mm3 (4.0-10.5)
[2020-03-09 02:56] LABS: ALKALINE PHOSPHATASE 48 U/L (38-126); ANION GAP 9.1 MEQ/L (5-15); BLOOD UREA NITROGEN 13 mg/dL (7-17); CHLORIDE 105 mmol/L (98-107); Calcium 9.3 mg/dL (8.4-10.2); Carbon Dioxide 27 mmol/L (22-30); Creatinine 1 0.63 mg/dL (0.52-1.04); Glucose 93 mg/dL (74-106); Potassium 3.6 mmol/L (3.5-5.1); SGOT/AST 22 U/L (14-36); SGPT/ALT 13 U/L (0-35); SODIUM 138 mmol/L (137-145); Total Protein 6.9 g/dL (6.3-8.2)
[2020-03-09 03:27] LABS: Bacteria RARE /HPF (NEGATIVE); Epithelial Cells RARE /HPF (FEW); Mucus SLIGHT /HPF (NEGATIVE)
[2020-03-09 03:28] LABS: Appearance HAZY (CLEAR); Bilirubin NEGATIVE (NEGATIVE); Blood 50 Ery/ul (0-5); Glucose NEGATIVE (NEGATIVE); Ketones SMALL (NEGATIVE); Leukocyte Esterase 1+ (NEGATIVE); Nitrite NEGATIVE (NEGATIVE); Protein,Urine Dip NEGATIVE (Negative); Specific Gravity 1.015 (1.005-1.025); Urobilinogen NORMAL mg/dL (0-1)
[2020-03-09 04:03] VITALS: PULSE 68
[2020-03-09 04:04] VITALS: O2SAT 99
[2020-03-09 04:05] VITALS: BP 109/72
--- NOTE | 2020-03-09 09:31 | XRAY ---
Indication: Right flank/pelvic pain. Dysuria. Multiple contiguous axial images obtained through the abdomen and pelvis without contrast using renal stone protocol. Comparison: August 10, 2016. Lung bases remain clear. Heart is not enlarged. New 3 mm distal right ureter calculus just proximal to the UVJ. Proximal right ureter is slightly prominent and there is mild hydronephrosis consistent with partial obstructive uropathy. Both kidneys again demonstrate a few punctate calculi. Noncontrasted stomach and bowel loops appear nonobstructed. Normal appendix. There is again mild diffuse scattered fecal debris throughout. No free fluid/air. Remaining liver, gallbladder, pancreas, spleen, adrenal glands, kidneys, ureters, bladder, uterus, and aorta appear unremarkable for noncontrast exam. Osseous structures intact with stable L5/L1 limbus vertebrae. Impression: 1. New 3 mm distal right ureteric is producing partial obstruction. The remains again a few bilateral renal micro-calculi. 2. Continued diffuse fecal stasis. 3. Remaining CT abdomen/pelvis without contrast exam is negative. Comment: Preliminary interpretation was made by [facility]. No critical discrepancy.
== END 2020-03-09 04:16 | disposition home or self-care (01) ==
LOC: ED 01:31
DX: R10.9 Unspecified abdominal pain (principal); N13.2 Hydronephrosis with renal and ureteral calculous obstruction; N39.0 Urinary tract infection, site not specified; N23 Unspecified renal colic
CPT/HCPCS: 36000; 36415; 74176; 80053; 81001; 85025; 87086; 96360; 96374; 99284; J1885

== ENCOUNTER 2020-03-11 07:29 | Emergency (ER) | payer OTHER ==
[2020-03-11] MEDS ORDERED: Zofran 4 MG/2 ML VIAL IV ONE (08:02)
[2020-03-11] MEDS ORDERED: Sodium Chloride 0.9% 1000 ML 1,000 ML IV STA (08:02)
[2020-03-11] MEDS ORDERED: MORPHINE SULFATE 4 MG INJ IV ONE ×2 (08:02→08:31)
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
[2020-03-11] MEDS ORDERED: MORPHINE SULFATE 4 MG INJ ONE ×2 (08:14→08:27)
[2020-03-11] MEDS ORDERED: Zofran 4 MG/2 ML VIAL ONE (08:14)
[2020-03-11] MEDS ORDERED: Sodium Chloride 0.9% 1000 ML 1,000 ML ONE (08:14)
[2020-03-11 08:51] LABS: Absolute Neutrophil Ct (ANC) 4.43 (1.4-6.9); BASOPHIL % 0.2 % (0.0-0.4); Basophil (Absolute #) 0.01 (0-0.4); Eosinophil % 0.5 % (0.00-5.0); Eosinophil (Absolute #) 0.03 (0-0.5); Hematocrit 41.3 % (35-47); Hemoglobin 13.9 gm/dl (12.0-16.0); Lymphocyte (Absolute #) 1.39 (1.0-4.6); Lymphocytes % 21.7 % (24.0-44.0); Mean Cell Volume 95.6 fl (78-100); Mean Corpuscular Hemoglobin 32.2 pg (26-32); Mean Corpuscular Hgb Concent. 33.7 g/dl (32-36); Mean Platelet Volume 9.5 fl (7.5-11.0); Monocyte (Absolute #) 0.55 (0.0-1.3); Monocytes % 8.6 % (0.0-12.0); Platelet Count 128 K/mm3 (150-450); Red Blood Count 4.32 M/mm3 (4.1-5.4); Red Cell Distribution Width 12.7 % (11.5-14.0); White Blood Count 6.4 K/mm3 (4.0-10.5)
--- NOTE | 2020-03-11 08:51 | XRAY ---
Indication: Pain. Obstruction. Multiple contiguous axial images obtained through the abdomen and pelvis without contrast using renal stone protocol. Comparison: March 09, 2020. Lung bases clear of infiltrate or effusion. Heart is not enlarged. Stomach is mildly fluid distended. Noncontrasted stomach and bowel loops remain nonobstructed again with normal appendix. There remains mild diffuse scattered fecal debris greatest in the right hemicolon. New Diane catheter drains the urinary bladder and new 2 cm left ovary cyst. No free fluid/air. Previous distal right ureteral calculus has passed. There is slight worsening mild right-sided hydronephrosis and hydroureter up to 10 mm in diameter. No perinephric fluid. There remains a few renal punctate calculi bilaterally but no distal ureteral calculus. Remaining liver, gallbladder, pancreas, spleen, adrenal glands, uterus, and aorta appear unremarkable for noncontrast exam. Impression: 1. Status post right ureter calculus passage/extraction with worsening right hydronephrosis and hydroureter. Stable bilateral renal micro-calculi but no new ureteral calculus. 2. New Diane catheter in situ and 2 cm left ovary cyst. 3. Continued mild diffuse fecal stasis. 4. Remaining CT abdomen/pelvis without contrast exam is negative.
[2020-03-11 09:20] LABS: ALBUMIN 4.6 g/dL (3.5-5.0); ALKALINE PHOSPHATASE 58 U/L (38-126); ANION GAP 14.6 MEQ/L (5-15); BLOOD UREA NITROGEN 12 mg/dL (7-17); CHLORIDE 101 mmol/L (98-107); Calcium 9.6 mg/dL (8.4-10.2); Carbon Dioxide 26 mmol/L (22-30); Creatinine 1 0.73 mg/dL (0.52-1.04); Glucose 96 mg/dL (74-106); Potassium 3.4 mmol/L (3.5-5.1); SGOT/AST 26 U/L (14-36); SGPT/ALT 15 U/L (0-35); SODIUM 139 mmol/L (137-145); Total Protein 8.1 g/dL (6.3-8.2)
[2020-03-11 10:29] VITALS: BP 112/71
[2020-03-11] MEDS ORDERED: TORAdol 30 mg Injection ONE (10:43)
[2020-03-11] MEDS ORDERED: TORAdol 30 mg Injection IV ONE (10:59)
[2020-03-11 11:05] VITALS: PULSE 79; O2SAT 96
[2020-03-11 11:07] LABS: Appearance CLEAR (CLEAR); Bacteria RARE /HPF (NEGATIVE); Bilirubin NEGATIVE (NEGATIVE); Blood LARGE Ery/ul (0-5); Glucose NEGATIVE (NEGATIVE); Ketones SMALL (NEGATIVE); Leukocyte Esterase NEGATIVE (NEGATIVE); Mucus SLIGHT /HPF (NEGATIVE); Nitrite NEGATIVE (NEGATIVE); Protein,Urine Dip NEGATIVE (Negative); RBC 51-100 /HPF (0-2); Specific Gravity 1.006 (1.005-1.025); Urobilinogen NEGATIVE mg/dL (0-1)
== END 2020-03-11 12:36 | disposition home or self-care (01) ==
LOC: ED 07:29
DX: R10.9 Unspecified abdominal pain (principal); N32.89 Other specified disorders of bladder
CPT/HCPCS: 36000; 36415; 51702; 74176; 80053; 81001; 83605; 85025; 87040; 87086; 96360; 96374; 96375; 96376; 99284; J1885; J2270; J2405

== ENCOUNTER 2021-05-16 23:06 | Emergency (ER) | payer OTHER ==
[2021-05-16 23:42] VITALS: O2SAT 96
[2021-05-16 23:57] LABS: Absolute Neutrophil Ct (ANC) 2.55 (1.4-6.9); BASOPHIL % 0.4 % (0.0-0.4); Basophil (Absolute #) 0.02 (0-0.4); Eosinophil % 2.3 % (0.00-5.0); Eosinophil (Absolute #) 0.11 (0-0.5); Hematocrit 42.3 % (35-47); Hemoglobin 13.7 gm/dl (12.0-16.0); Lymphocyte (Absolute #) 1.43 (1.0-4.6); Lymphocytes % 30.3 % (24.0-44.0); Mean Corpuscular Hemoglobin 30.4 pg (26-32); Mean Corpuscular Hgb Concent. 32.4 g/dl (32-36); Mean Platelet Volume 9.6 fl (7.5-11.0); Monocyte (Absolute #) 0.61 (0.0-1.3); Monocytes % 12.9 % (0.0-12.0); Neutrophil % 54.1 % (36.0-66.0); Platelet Count 173 K/mm3 (150-450); Red Cell Distribution Width 12.6 % (11.5-14.0); White Blood Count 4.7 K/mm3 (4.0-10.5)
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
[2021-05-17 00:01] LABS: Appearance SLIGHTLY CLOUDY (CLEAR); Bacteria NONE SEEN /HPF (NEGATIVE); Bilirubin NEGATIVE (NEGATIVE); Blood SMALL Ery/ul (0-5); Epithelial Cells RARE /HPF (FEW); Glucose NEGATIVE (NEGATIVE); Ketones NEGATIVE (NEGATIVE); Leukocyte Esterase MODERATE (NEGATIVE); Mucus SLIGHT /HPF (NEGATIVE); Nitrite NEGATIVE (NEGATIVE); Protein,Urine Dip NEGATIVE (Negative); Specific Gravity 1.025 (1.005-1.025); Urobilinogen 4 mg/dL (0-1); WBC 26-50 /HPF (0-5)
[2021-05-17 00:09] LABS: ALBUMIN 4.5 g/dL (3.5-5.0); ALKALINE PHOSPHATASE 55 U/L (38-126); ANION GAP 14.2 MEQ/L (5-15); BLOOD UREA NITROGEN 15 mg/dL (7-17); CHLORIDE 103 mmol/L (98-107); Calcium 9.5 mg/dL (8.4-10.2); Carbon Dioxide 25 mmol/L (22-30); Creatinine 1 0.84 mg/dL (0.52-1.04); EST GLOMERULAR FILTRATION RATE > 60.0 ML/MIN; Glucose 86 mg/dL (74-106); LIPASE 98 U/L (23-300); Potassium 3.9 mmol/L (3.5-5.1); SGOT/AST 24 U/L (14-36); SGPT/ALT 12 U/L (0-35); SODIUM 139 mmol/L (137-145); Total Protein 7.5 g/dL (6.3-8.2)
[2021-05-17] MEDS ORDERED: Sodium Chloride 0.9% 1000 ML 1,000 ML ONE (00:20)
[2021-05-17] MEDS ORDERED: Zofran 4 MG/2 ML VIAL ONE (00:20)
[2021-05-17] MEDS ORDERED: MORPHINE SULFATE 4 MG INJ ONE (00:20)
[2021-05-17] MEDS: Sodium Chloride 0.9% 1000 ML 1,000 ML IV STA (00:41)
[2021-05-17] MEDS: Zofran 4 MG/2 ML VIAL IV ONE (00:41)
[2021-05-17] MEDS: MORPHINE SULFATE 4 MG INJ IV ONE (00:42)
[2021-05-17] MEDS ORDERED: Levofloxacin 500 MG Tablet ONE (01:18)
[2021-05-17] MEDS: Levofloxacin 500 MG Tablet PO ONE (01:25)
[2021-05-17] MEDS ORDERED: NORCO 5/325 MG ONE (01:33)
[2021-05-17] MEDS: NORCO 5/325 MG PO ONE (01:35)
[2021-05-17 01:39] VITALS: BP 109/71; PULSE 65
--- NOTE | 2021-05-17 08:51 | XRAY ---
Indication: Right flank pain. History renal stones. Multiple contiguous axial images obtained through the abdomen and pelvis without contrast using renal stone protocol. Comparison: November 23, 2020 Lung bases demonstrates minimal right costophrenic angle fibrosis/scarring. No infiltrate or effusion. Heart is not enlarged. New 2-3 mm distal right ureter calculus just proximal to the UVJ. Minimal right hydronephrosis consistent with partial obstructive uropathy. Right upper renal calyx demonstrates punctate calculus. No renal calculus or evidence for obstructive uropathy on the left. Stomach is distended with food/fluid. Noncontrasted stomach and bowel loops nonobstructed. There is again moderate diffuse scattered colonic fecal debris more than before. No free fluid/air. Gallbladder contracted without gallstones. Remaining liver, pancreas, spleen, adrenal glands, kidneys, ureters, bladder, uterus, and aorta are unremarkable for noncontrast exam. Osseous structures intact again with incidental L5 limbus vertebrae. Impression: 1. New 2-3 mm distal right ureter calculus producing partial obstruction as detailed. Additional right renal punctate calculus. 2. Worsening moderate diffuse fecal stasis. Comment: Preliminary interpretation made by C. No critical discrepancy.
== END 2021-05-17 01:50 | disposition home or self-care (01) ==
LOC: ED 23:06
DX: N39.0 Urinary tract infection, site not specified (principal); Z87.442 Personal history of urinary calculi
CPT/HCPCS: 36000; 36415; 74176; 80053; 81001; 83690; 84703; 85025; 96374; 96375; 99284; J2270; J2405; A9270-GY

== ENCOUNTER 2021-11-14 17:02 | Emergency (ER) | payer OTHER ==
[2021-11-14] MEDS ORDERED: DECADRON 10MG INJ. IV ONE (17:47)
[2021-11-14] MEDS ORDERED: BENADRYL 50 MG/ML IV ONE (17:48)
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
[2021-11-14] MEDS ORDERED: BENADRYL 50 MG/ML ONE (18:12)
[2021-11-14] MEDS ORDERED: DECADRON 10MG INJ. ONE (18:12)
[2021-11-14 18:42] LABS: INFLUENZA A NEGATIVE (NEGATIVE); INFLUENZA B NEGATIVE (NEGATIVE)
[2021-11-14 18:43] LABS: COVID AG -BINAX NOW RAPID TEST NEGATIVE (NEGATIVE)
[2021-11-14] MEDS ORDERED: Ativan 2 MG/1 ML VIAL IV ONE (18:43)
[2021-11-14] MEDS ORDERED: Ativan 2 MG/1 ML VIAL ONE (18:45)
[2021-11-14 20:02] VITALS: BP 119/75; PULSE 76
[2021-11-14 22:33] VITALS: O2SAT 100
--- NOTE | 2021-11-15 08:31 | XRAY ---
Indication: Short of breath. Elevated d-dimer. Pulmonary embolus. Multiple contiguous axial images obtained through the chest using 80 cc Isovue 370 contrast. Comparison: October 27, 2019. There is good opacification of the pulmonary arteries to include the lobar and segmental branches. No pulmonary embolus. Heart is not enlarged. Aorta is normal in course and caliber. No pathologic mediastinal/hilar lymphadenopathy. Lungs demonstrates minimal bilateral dependent atelectasis, biapical fibrosis/scarring, and left upper lobe calcified granulomas as before. No suspicious pulmonary mass, infiltrate, effusion, or pneumothorax. Bony thorax intact. Limited upper abdomen unremarkable. Impression: 1. Continued negative pulmonary embolus. No new/acute cardiopulmonary abnormalities. 2. Again incidental fibrosis/scarring and old granulomatous disease.
== END 2021-11-14 20:02 | disposition home or self-care (01) ==
LOC: ED 17:02
DX: R07.9 Chest pain, unspecified (principal); R06.00 Dyspnea, unspecified; R53.83 Other fatigue; R51.9 Headache, unspecified; E03.9 Hypothyroidism, unspecified; F41.9 Anxiety disorder, unspecified
CPT/HCPCS: 36000; 71260; 87400; 93005; 96374; 96375; 99000; 99284; J1100; J1200; J2060

== ENCOUNTER 2022-01-29 23:47 | Emergency (ER) | payer OTHER ==
[2022-01-30 02:09] VITALS: O2SAT 99
[2022-01-30 02:09] LABS: Appearance CLEAR (CLEAR); Bilirubin NEGATIVE (NEGATIVE); Dipstick done @ ? MAIN LAB; Glucose NEGATIVE (NEGATIVE); Ketones NEGATIVE (NEGATIVE); Nitrite NEGATIVE (NEGATIVE); Protein,Urine Dip NEGATIVE (Negative); RBC NEGATIVE Ery/ul (0-5); Urobilinogen 1 mg/dL (0-1)
[2022-01-30 02:16] LABS: Epithelial Cells RARE /HPF (FEW); Mucus SLIGHT /HPF (NEGATIVE); WBC 0-2 /HPF (0-5)
[2022-01-30 02:17] LABS: Urine Cultured Indicated? NO
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
[2022-01-30 03:29] VITALS: BP 121/72; PULSE 70
--- NOTE | 2022-01-30 09:09 | XRAY ---
Indication: Bilateral abdomen and groin pain. History kidney stone. Multiple contiguous axial images obtained through the abdomen and pelvis without contrast. Comparison: May 17, 2021. Lung bases clear. Heart not enlarged. Noncontrasted stomach and bowel loops appear nonobstructed with normal appendix. There is again moderate diffuse scattered colonic fecal debris throughout. No free fluid/air. Remaining liver, gallbladder, pancreas, spleen, adrenal glands, kidneys, ureters, bladder, uterus, and aorta are unremarkable for noncontrast exam. Osseous structures intact again with incidental L5 limbus vertebrae. No ventral or inguinal hernias. Impression: 1. Again diffuse fecal stasis. 2. Remaining CT abdomen/pelvis without contrast exam is negative. Comment: Preliminary interpretation made by C. No critical discrepancy.
== END 2022-01-30 03:44 | disposition home or self-care (01) ==
LOC: ED 23:47
DX: B37.3 Candidiasis of vulva and vagina (principal); R10.2 Pelvic and perineal pain; R10.9 Unspecified abdominal pain; R30.0 Dysuria; R60.0 Localized edema; Z79.899 Other long term (current) drug therapy
CPT/HCPCS: 74176; 81015; 99283